=== PATIENT | male | born 1955 | race Caucasian/White ===

== ENCOUNTER 2017-05-31 14:52 | Inpatient (IN) | payer MEDICARE, OTHER ==
[~2017-05-31] VITALS: Ht 182.9 cm; Wt 151.7 kg
[2017-05-31] MEDS ORDERED: PIPERACILLIN/TAZO IV Push 3.375 GM VIAL. IVP ONE (16:00)
[2017-05-31] MEDS ORDERED: PIP/TAZO PER PHARMACY MC PRN (16:00)
[2017-05-31] MEDS ORDERED: ACETAMINOPHEN 500 MG TABLET PO ONE (16:45)
[2017-05-31] MEDS ORDERED: oxyCODONE/APAP 10/325 1 TAB TABLET PO ONE (16:45)
[2017-05-31 16:51] LABS: BASO % 0 % (0-3); EOS % 2 % (0-3); HEMATOCRIT 33.1 % (39.0-53.0); HEMOGLOBIN 10.3 g/dL (13.0-17.5); LYMPH # 0.5 x10^3/uL (1.0-4.8); LYMPH % 6 % (24-48); MEAN CORPUSCULAR HEMOGLOBIN 27 pg (25-35); MEAN CORPUSCULAR HGB CONC 31 g/dL (31-37); MEAN CORPUSCULAR VOLUME 86 fL (79-100); MONO % 7 % (0-9); NEUT % 85 % (31-73); PLATELET COUNT 249 x10^3/uL (140-400); RED BLOOD COUNT 3.86 x10^6/uL (4.30-5.70); RED CELL DISTRIBUTION WIDTH 16.6 % (11.5-14.5); WHITE BLOOD COUNT 8.9 x10^3/uL (4.0-11.0)
[2017-05-31 16:58] LABS: CALCIUM 8.8 mg/dL (8.5-10.1); CREATININE 1.6 mg/dL (0.7-1.3); POTASSIUM 5.6 mmol/L (3.5-5.1)
[2017-05-31 17:00] LABS: INR 1.1 (0.8-1.1); PROTHROMBIN TIME PATIENT 13.5 SEC (11.7-14.0)
[2017-05-31 17:04] LABS: ALBUMIN 3.5 g/dL (3.4-5.0); ALBUMIN/GLOBULIN RATIO 0.8 (1.0-1.7); TOTAL BILIRUBIN 0.2 mg/dL (0.2-1.0); TOTAL PROTEIN 7.7 g/dL (6.4-8.2)
--- NOTE | 2017-05-31 17:22 | PHYS DOC ---
Past Medical History Past Medical History: Arthritis, Bipolar, GERD, High Cholesterol, Hypertension Additional Past Medical Histor: BPH, thyroid disease, gout, lumbar stenosis Past Surgical History: Other Additional Past Surgical Histo: bilat knee surgery, cataracts, R wrist surgery Alcohol Use: Rarely Drug Use: None Adult General Chief Complaint Chief Complaint: FACE PROBLEM HPI HPI Patient is a 61 year old male who presents ambulatory to the ED with the complaint of right ear pain and swelling since yesterday. 2 days ago his right ear was painful, yesterday it got worse and became swollen, today it is even more swollen and painful. He has had fever and chills for 1 day. No vomiting. He 's never had this before. He is not diabetic. He doesn't know what might have started this, he did not have any kind of scratch or injury to his ear. Patient denies illness prior to [address] Gunderson Review of Systems Review of Systems Constitutional: Positive fever and chills for 1 day Eyes: Denies change in visual acuity, redness, or eye pain [] HENT: Denies nasal congestion or sore throat [] Respiratory: Denies cough or shortness of breath [] Cardiovascular: Denies chest pain GI: Denies abdominal pain, nausea, vomiting, bloody stools or diarrhea [] : Denies dysuria or hematuria [] Musculoskeletal: Denies back pain or joint pain [] Integument: As in history of present illness Neurologic: Denies headache, focal weakness or sensory changes [] Endocrine: Denies diabetes All other systems were reviewed and found to be within normal limits, except as documented in this note. Current Medications Current Medications Current Medications Medications (Trade) Dose Ordered Sig/Genesis Start Time Stop Time Status Last Admin Dose Admin Acetaminophen (Tylenol) 325 mg 1X ONCE 05/31/17 16:45 05/31/17 16:46 DC 05/31/17 16:48 325 MG Oxycodone/ Acetaminophen (Percocet 10/325) 2 tab 1X ONCE 05/31/17 16:45 05/31/17 16:46 DC 05/31/17 16:48 2 TAB Piperacillin Sod/ Tazobactam Sod (Zosyn Per Pharmacy) 1 each PRN DAILY PRN 05/31/17 16:00 Piperacillin Sod/ Tazobactam Sod (Zosyn) 3.375 gm 1X ONCE 05/31/17 16:00 05/31/17 16:01 DC 05/31/17 16:48 3.375 GM Allergies Allergies Allergies Coded Allergies Type Severity Reaction Last Updated Verified escitalopram Allergy Severe "made me suicidal" 05/31/17 Yes Physical Exam Physical Exam Constitutional: Obese male, ambulatory, alert, no acute distress, warm and dry HENT: Normocephalic, atraumatic, oropharynx moist, no oral exudates, nose normal. Right external ear is markedly swollen, red, tender. No focus noted where this may have started. He does not appear to have external otitis, it is the entire auricle. Left ear unremarkable. Erythema extends anteriorly on his face to about group home across his cheek and extends a little posterior to his ear , also extends inferior to about the angle of the mandible. Eyes: conjunctiva normal, no discharge. [] Neck: Normal range of motion, no tenderness, supple, no stridor. [] Cardiovascular:Heart rate regular rhythm, no murmur [] Lungs & Thorax: Bilateral breath sounds clear to auscultation [] Skin: Warm, dry, no erythema, no rash. [] Extremities: No tenderness, no cyanosis, no clubbing, ROM intact, no edema. [] Neurologic: Alert and oriented X 3, normal motor function, no focal deficits noted. [] Current Patient Data Vital Signs Vital Signs Date Time Temp Pulse Resp B/P (MAP) Pulse Ox O2 Delivery O2 Flow Rate FiO2 05/31/17 16:54 92 18 159/71 (100) 95 Room Air 05/31/17 16:45 100.3 100.3 Lab Values Laboratory Tests Test 05/31/17 16:39 White Blood Count 8.9 x10^3/uL (4.0-11.0) Red Blood Count 3.86 x10^6/uL (4.30-5.70) L Hemoglobin 10.3 g/dL (13.0-17.5) L Hematocrit 33.1 % (39.0-53.0) L Mean Corpuscular Volume 86 fL (79-100) Mean Corpuscular Hemoglobin 27 pg (25-35) Mean Corpuscular Hemoglobin Concent 31 g/dL (31-37) Red Cell Distribution Width 16.6 % (11.5-14.5) H Platelet Count 249 x10^3/uL (140-400) Neutrophils (%) (Auto) 85 % (31-73) H Lymphocytes (%) (Auto) 6 % (24-48) L Monocytes (%) (Auto) 7 % (0-9) Eosinophils (%) (Auto) 2 % (0-3) Basophils (%) (Auto) 0 % (0-3) Neutrophils # (Auto) 7.5 x10^3uL (1.8-7.7) Lymphocytes # (Auto) 0.5 x10^3/uL (1.0-4.8) L Monocytes # (Auto) 0.6 x10^3/uL (0.0-1.1) Eosinophils # (Auto) 0.2 x10^3/uL (0.0-0.7) Basophils # (Auto) 0.0 x10^3/uL (0.0-0.2) Prothrombin Time 13.5 SEC (11.7-14.0) Prothrombin Time INR 1.1 (0.8-1.1) PTT 31 SEC (24-38) Sodium Level 140 mmol/L (136-145) Potassium Level 5.6 mmol/L (3.5-5.1) H Chloride Level 104 mmol/L (98-107) Carbon Dioxide Level 25 mmol/L (21-32) Anion Gap 11 (6-14) Blood Urea Nitrogen 32 mg/dL (8-26) H Creatinine 1.6 mg/dL (0.7-1.3) H Estimated GFR (Cockcroft-Gault) 44.0 BUN/Creatinine Ratio 20 (6-20) Glucose Level 103 mg/dL (70-99) H Lactic Acid Level 1.7 mmol/L (0.4-2.0) Calcium Level 8.8 mg/dL (8.5-10.1) Total Bilirubin 0.2 mg/dL (0.2-1.0) Aspartate Amino Transferase (AST) 35 U/L (15-37) Alanine Aminotransferase (ALT) 40 U/L (16-63) Alkaline Phosphatase 82 U/L (46-116) Total Protein 7.7 g/dL (6.4-8.2) Albumin 3.5 g/dL (3.4-5.0) Albumin/Globulin Ratio 0.8 (1.0-1.7) L Laboratory Tests 11/12/17 16:39 Laboratory Tests 05/31/17 16:39 EKG EKG [] Radiology/Procedures Radiology/Procedures [] Course & Med Decision Making Course & Med Decision Making Pertinent Labs and Imaging studies reviewed. (See chart for details) 61-year-old male, who does not have diabetes, appears to have acute cellulitis of the right external ear that extends anteriorly onto the face, posteriorly, and inferiorly. He has had fever and chills at home with a temp of 100.8 here in the ED. I believe he should be supplies for IV antibiotics due to the severity of the cellulitis. Patient is agreeable to that plan. I discussed the case with who will admit the patient. I wrote bridge orders. I started the patient on antibiotics. [] Dragon Disclaimer Dragon Disclaimer This electronic medical record was generated, in whole or in part, using a voice recognition dictation system. Departure Departure Impression: Primary Impression: Cellulitis of right ear Additional Impression: Facial cellulitis Disposition: ADMITTED INPATIENT Admitting Physician: Anita Gunderson Condition: STABLE Referrals: ANITA GUNDERSON MD (PCP) Problem Qualifiers ROCIO LYONS MD May 31, 2017 17:22
[2017-05-31] MEDS ORDERED: IV NORMAL SALINE 1000ML BAG 1,000 ML IV ONE (17:30)
[2017-05-31] MEDS ORDERED: VANCOMYCIN 2 GM in IV DEXTROSE 5% 500 ML IV ONE (18:00)
[2017-05-31] MEDS ORDERED: SODIUM POLYSTYRENE SULFONATE 15 GM/60 ML ORAL.SUSP. PO ONE (19:15)
[2017-05-31 19:30] VITALS: BP 141/81
[2017-05-31] MEDS: VANCOMYCIN PER PHARMACY MC PRN ×2 (19:36→19:39)
[2017-05-31] MEDS ORDERED: ACETAMINOPHEN 500 MG TABLET PO PRN (22:30)
[2017-05-31 23:00] VITALS: BP 127/59
[2017-06-01] MEDS: PIPERACILLIN/TAZO IV Push 3.375 GM VIAL. IVP SCH ×4 (01:08→18:43)
[2017-06-01 02:55] VITALS: BP 137/88
[2017-06-01] MEDS ORDERED: VANCOMYCIN 1.5 GM in IV DEXTROSE 5% 500 ML IV SCH (06:30)
[2017-06-01 07:00] VITALS: BP 160/82
--- NOTE | 2017-06-01 08:29 | PDOC ---
GENERAL General: vss and tmax of 102.8 during night. chest clear and heart regular and abdomen benign. bilateral knee deformity at baseline and had appt with ortho today regarding same and will ask them to see while here. will ask ID opinion also with possibility of pseudomonas as organism and not sure have best coverage there. right ear quite swollen with cellulitis spreading anterior and posterior to ear and no decrease in painful nature of same to date. Problems: VITAL SIGNS Vital Signs: Vital Signs Date Time Temp Pulse Resp B/P (MAP) Pulse Ox O2 Delivery O2 Flow Rate FiO2 06/01/17 07:00 98.6 84 20 160/82 (108) 97 Room Air 98.6 ALLERGIES Allergies: Allergies Coded Allergies Type Severity Reaction Last Updated Verified escitalopram Allergy Severe "made me suicidal" 05/31/17 Yes MEDS Medications: Current Medications Medications (Trade) Dose Ordered Sig/Genesis Start Time Stop Time Status Last Admin Dose Admin Acetaminophen (Tylenol) 1,000 mg PRN Q6HRS PRN 05/31/17 22:30 05/31/17 22:44 1,000 MG Oxycodone/ Acetaminophen (Percocet 10/325) 2 tab 1X ONCE 05/31/17 16:45 05/31/17 16:46 DC 05/31/17 16:48 2 TAB Piperacillin Sod/ Tazobactam Sod (Zosyn Per Pharmacy) 1 each PRN DAILY PRN 05/31/17 16:00 Piperacillin Sod/ Tazobactam Sod (Zosyn) 3.375 gm Q6HRS 06/01/17 00:00 06/01/17 06:36 3.375 GM Sodium Polystyrene Sulfonate (Kayexalate) 15 gm 1X ONCE 05/31/17 19:15 05/31/17 19:16 DC 05/31/17 22:44 15 GM Sodium Chloride 1,000 ml @ 100 mls/hr 1X ONCE 05/31/17 17:30 06/01/17 03:29 DC 05/31/17 18:23 100 MLS/HR Vancomycin HCl 1 each 1X ONCE 06/02/17 06:00 06/02/17 06:01 Vancomycin HCl (Vanco Per Pharmacy) 1 each PRN DAILY PRN 05/31/17 17:30 05/31/17 19:39 1 EACH Vancomycin HCl 1.5 gm/Dextrose 500 ml @ 250 mls/hr Q12H 11/13/17 06:30 06/01/17 06:36 250 MLS/HR Vancomycin HCl 2 gm/Dextrose 500 ml @ 250 mls/hr 1X ONCE 05/31/17 18:00 05/31/17 19:59 DC 05/31/17 18:23 250 MLS/HR LAB Lab: Laboratory Tests Test 05/31/17 16:39 White Blood Count 8.9 x10^3/uL (4.0-11.0) Red Blood Count 3.86 x10^6/uL (4.30-5.70) Hemoglobin 10.3 g/dL (13.0-17.5) Hematocrit 33.1 % (39.0-53.0) Mean Corpuscular Volume 86 fL (79-100) Mean Corpuscular Hemoglobin 27 pg (25-35) Mean Corpuscular Hemoglobin Concent 31 g/dL (31-37) Red Cell Distribution Width 16.6 % (11.5-14.5) Platelet Count 249 x10^3/uL (140-400) Neutrophils (%) (Auto) 85 % (31-73) Lymphocytes (%) (Auto) 6 % (24-48) Monocytes (%) (Auto) 7 % (0-9) Eosinophils (%) (Auto) 2 % (0-3) Basophils (%) (Auto) 0 % (0-3) Neutrophils # (Auto) 7.5 x10^3uL (1.8-7.7) Lymphocytes # (Auto) 0.5 x10^3/uL (1.0-4.8) Monocytes # (Auto) 0.6 x10^3/uL (0.0-1.1) Eosinophils # (Auto) 0.2 x10^3/uL (0.0-0.7) Basophils # (Auto) 0.0 x10^3/uL (0.0-0.2) Prothrombin Time 13.5 SEC (11.7-14.0) Prothromb Time International Ratio 1.1 (0.8-1.1) Activated Partial Thromboplast Time 31 SEC (24-38) Sodium Level 140 mmol/L (136-145) Potassium Level 5.6 mmol/L (3.5-5.1) Chloride Level 104 mmol/L (98-107) Carbon Dioxide Level 25 mmol/L (21-32) Anion Gap 11 (6-14) Blood Urea Nitrogen 32 mg/dL (8-26) Creatinine 1.6 mg/dL (0.7-1.3) Estimated GFR (Cockcroft-Gault) 44.0 BUN/Creatinine Ratio 20 (6-20) Glucose Level 103 mg/dL (70-99) Lactic Acid Level 1.7 mmol/L (0.4-2.0) Calcium Level 8.8 mg/dL (8.5-10.1) Total Bilirubin 0.2 mg/dL (0.2-1.0) Aspartate Amino Transf (AST/SGOT) 35 U/L (15-37) Alanine Aminotransferase (ALT/SGPT) 40 U/L (16-63) Alkaline Phosphatase 82 U/L (46-116) Total Protein 7.7 g/dL (6.4-8.2) Albumin 3.5 g/dL (3.4-5.0) Albumin/Globulin Ratio 0.8 (1.0-1.7) ANITA GUNDERSON MD Jun 01, 2017 08:29
--- NOTE | 2017-06-01 09:24 | HP ---
ADMIT DATE: CHIEF COMPLAINT AND HISTORY OF PRESENT ILLNESS: This is a 61-year-old white male who is well known to me from followup in the office. The patient had some ear pain starting Thursday night, progressively worse on Thursday and then Thursday, with fevers and chills and sweats. He presented to the Emergency Room, where he was found to have cellulitis of the right ear extending anterior and posterior to the ear. He did have a normal white count in the 8000 range, with a left shift and because of the nature of the cellulitis being facial, he was admitted for IV antibiotics and blood cultures. PAST MEDICAL HISTORY: Remarkable for osteoarthritis, bipolar depression, GERD, hyperlipidemia, hypertension, BPH, thyroid disease, lumbar spinal stenosis and gout. PAST SURGICAL HISTORY: Remarkable for bilateral laparoscope surgeries, cataracts and right wrist surgery. MEDICATIONS: Meds were brought with the patient and listed on the computer and have been addressed. ALLERGIES: HE IS ALLERGIC TO LEXAPRO. SOCIAL HISTORY: The patient is a nonsmoker, rarely drinks. Does not use drugs. He is and lives at home with his . FAMILY HISTORY: Noncontributory. REVIEW OF SYSTEMS: As is mentioned above. PHYSICAL EXAMINATION: GENERAL: He is a well-developed and well-nourished, pleasant white male in mild amount of distress. VITAL SIGNS: Stable. He just had a temperature slightly high at 102.8 since admission. HEAD, EYES, EARS, NOSE AND THROAT: Remarkable for marked swelling of the right pinna. He does have cellulitis extending approximately a third of the way from the pinna upwards to the nares as well as posteriorly a similar amount of area and submandibular. NECK: Supple without bruit or thyromegaly. CHEST: Clear to auscultation and percussion. HEART: Regular rate and rhythm, without S3, S4 or murmur. ABDOMEN: Soft, nontender, without hepatosplenomegaly or masses. EXTREMITIES: Reveal osteoarthritic deformities of both knees and interestingly, he was to see Ortho today in the office to consider knee replacements, which we have been talking about for years. NEUROLOGIC: He is intact. IMPRESSION: Right ear and facial cellulitis, as discussed above, and acute multiple other problems listed above. PLAN: The patient has been admitted. He also has a normochromic, normocytic anemia and a creatinine of 1.6 on admission. I am going to ask ID to see him about the possibility of a Pseudomonal component to this, whether it is starting in the ear, for direction on antibiotic therapy, as he is currently on vancomycin and Zosyn. We will also ask Ortho to see him while he is here, since he is going to be obviously missing his appointment today and may be that will save him from re-do that. ANITA GUNDERSON MD DR: IVONNE/jaye JOB#: [id number] / [id number]
[2017-06-01] MEDS ORDERED: TERA5CAP3 PO (10:08)
[2017-06-01] MEDS ORDERED: LEVO100T5 PO (10:09)
[2017-06-01] MEDS ORDERED: DICL75TA PO (10:10)
[2017-06-01] MEDS ORDERED: ZIPR80CA3 PO (10:11)
[2017-06-01] MEDS ORDERED: ATOM40CA PO (10:12)
[2017-06-01] MEDS ORDERED: ALLO300T PO (10:12)
[2017-06-01] MEDS ORDERED: FINA5TAB4 PO (10:13)
[2017-06-01] MEDS ORDERED: BYSTOLIC5 MG PO (10:13)
[2017-06-01] MEDS ORDERED: PRAV40TA2 PO (10:17)
[2017-06-01 10:37] LABS: % SAT IRON 2 % (15-34); IRON,SERUM 7 ug/dL (65-175)
[2017-06-01 10:45] LABS: FOLATE 19.81 ng/ml (3.2-20.0)
[2017-06-01 11:00] VITALS: BP 141/82
[2017-06-01] MEDS ORDERED: OXYC1TAB9 PO (11:17)
[2017-06-01] MEDS ORDERED: TRAZ100T12 PO (11:18)
[2017-06-01] MEDS ORDERED: CLON0.5T3 PO (11:18)
[2017-06-01] MEDS ORDERED: CYCL10TA2 PO (11:19)
[2017-06-01] MEDS ORDERED: ASPI-482 PO (11:20)
[2017-06-01] MEDS ORDERED: MONT10TA9 PO (11:20)
[2017-06-01] MEDS ORDERED: OMEP20TA63 PO (11:22)
[2017-06-01] MEDS ORDERED: GLUC1CAP18 PO (11:22)
--- NOTE | 2017-06-01 11:22 | PDOC ---
Infectious Disease Note ROS ROS Vital Sign Vital Signs Vital Signs Date Time Temp Pulse Resp B/P (MAP) Pulse Ox O2 Delivery O2 Flow Rate FiO2 06/01/17 07:00 98.6 84 20 160/82 (108) 97 Room Air 98.6 Labs Lab Laboratory Tests Test 05/31/17 16:39 06/01/17 09:40 White Blood Count 8.9 x10^3/uL (4.0-11.0) Red Blood Count 3.86 x10^6/uL (4.30-5.70) Hemoglobin 10.3 g/dL (13.0-17.5) Hematocrit 33.1 % (39.0-53.0) Mean Corpuscular Volume 86 fL (79-100) Mean Corpuscular Hemoglobin 27 pg (25-35) Mean Corpuscular Hemoglobin Concent 31 g/dL (31-37) Red Cell Distribution Width 16.6 % (11.5-14.5) Platelet Count 249 x10^3/uL (140-400) Neutrophils (%) (Auto) 85 % (31-73) Lymphocytes (%) (Auto) 6 % (24-48) Monocytes (%) (Auto) 7 % (0-9) Eosinophils (%) (Auto) 2 % (0-3) Basophils (%) (Auto) 0 % (0-3) Neutrophils # (Auto) 7.5 x10^3uL (1.8-7.7) Lymphocytes # (Auto) 0.5 x10^3/uL (1.0-4.8) Monocytes # (Auto) 0.6 x10^3/uL (0.0-1.1) Eosinophils # (Auto) 0.2 x10^3/uL (0.0-0.7) Basophils # (Auto) 0.0 x10^3/uL (0.0-0.2) Prothrombin Time 13.5 SEC (11.7-14.0) Prothromb Time International Ratio 1.1 (0.8-1.1) Activated Partial Thromboplast Time 31 SEC (24-38) Sodium Level 140 mmol/L (136-145) Potassium Level 5.6 mmol/L (3.5-5.1) Chloride Level 104 mmol/L (98-107) Carbon Dioxide Level 25 mmol/L (21-32) Anion Gap 11 (6-14) Blood Urea Nitrogen 32 mg/dL (8-26) Creatinine 1.6 mg/dL (0.7-1.3) Estimated GFR (Cockcroft-Gault) 44.0 BUN/Creatinine Ratio 20 (6-20) Glucose Level 103 mg/dL (70-99) Lactic Acid Level 1.7 mmol/L (0.4-2.0) Calcium Level 8.8 mg/dL (8.5-10.1) Total Bilirubin 0.2 mg/dL (0.2-1.0) Aspartate Amino Transf (AST/SGOT) 35 U/L (15-37) Alanine Aminotransferase (ALT/SGPT) 40 U/L (16-63) Alkaline Phosphatase 82 U/L (46-116) Total Protein 7.7 g/dL (6.4-8.2) Albumin 3.5 g/dL (3.4-5.0) Albumin/Globulin Ratio 0.8 (1.0-1.7) Iron Level 7 ug/dL (65-175) Total Iron Binding Capacity 289 ug/dL (250-450) Iron Saturation 2 % (15-34) Vitamin B12 Level 528 pg/mL (247-911) Serum Folate 19.81 ng/ml (3.2-20.0) Objective Assessment Fever Right ear cellulitis Water exposure TACHO Plan Plan of Care Change Vanc to Zyvox Cont Zosyn with water exposure F/u labs and cults Thank you # [id number] BLANCA GUZMAN MD Jun 01, 2017 11:22
[2017-06-01] MEDS ORDERED: FISH1CAP PO (11:23)
[2017-06-01] MEDS ORDERED: GARL10002 PO (11:23)
[2017-06-01] MEDS ORDERED: CYAN10005 PO (11:24)
[2017-06-01] MEDS ORDERED: MULT1TAB52 PO (11:24)
[2017-06-01] MEDS ORDERED: CYCLOBENZAPRINE 10 MG TABLET. PO PRN (11:45)
[2017-06-01] MEDS: ZIPRASIDONE 20 MG CAPSULE PO SCH ×2 (12:32→21:06)
[2017-06-01] MEDS: LINEZOLID 600 MG TABLET PO SCH ×2 (12:33→21:07)
[2017-06-01] MEDS: METOPROLOL TART IMMED RELEASE 25 MG TABLET. PO SCH ×2 (12:33→21:09)
[2017-06-01] MEDS: clonazePAM 0.5 MG TABLET PO SCH (12:33)
[2017-06-01] MEDS: PANTOPRAZOLE 40 MG TABLET.DR. PO SCH (12:33)
[2017-06-01] MEDS: CYANOCOBALAMIN (VITAMIN B-12) 1,000 MCG TABLET. PO SCH (12:33)
[2017-06-01] MEDS: OMEGA-3 FATTY ACIDS/FISH OIL 1,000 MG CAPSULE. PO SCH (12:34)
[2017-06-01] MEDS: MULTIVITAMIN with MINERAL TABLET. PO SCH (12:34)
[2017-06-01] MEDS: FINASTERIDE 5 MG TABLET. PO SCH (12:34)
[2017-06-01] MEDS: ALLOPURINOL 300 MG TABLET. PO SCH (12:34)
[2017-06-01] MEDS: MONTELUKAST SODIUM 10 MG TABLET. PO SCH (12:34)
[2017-06-01] MEDS: oxyCODONE/APAP 10/325 1 TAB TABLET PO PRN ×2 (12:34→21:06)
[2017-06-01] MEDS: DICLOFENAC SODIUM 25 MG TABLET.DR PO SCH (12:35)
[2017-06-01] MEDS: ASPIRIN ENTERIC COATED 81 MG TABLET.DR. PO SCH (12:35)
--- NOTE | 2017-06-01 13:26 | CONS ---
DATE OF CONSULTATION: 06/01/2017 LOCATION: Room 582. REQUESTING PHYSICIAN: Dr. Sarmiento. REASON FOR CONSULTATION: Cellulitis. HISTORY OF PRESENT ILLNESS: The patient is a pleasant 61-year-old gentleman who last Thursday in the late afternoon noticed pain in his right ear. Denies any trauma or bites. Over the weekend, it continued to worsen. He states it affected his hearing, although this has improved. He has not had any drainage, no sinus issues, no sore throat, but began to have a little bit of swelling on the right side of his neck as well. There are no family members with any similar situations. He has not had any previous strep or staph history and no exposure that he knows of. He presented to [facility] Emergency Room, had a white count of 8000, but last evening developed a temperature of 102.8. He has been placed on Zosyn and vancomycin. Currently, he is sitting upright in a chair. He states he is feeling somewhat better. He has no change in vision. No cough or shortness of air. No nausea, vomiting, diarrhea. No dysuria, frequency, urgency. He has chronic joint pains with the knees and back. Additionally, he swims usually Thursday, Thursday and Thursday, but his last time was last Thursday. PAST MEDICAL HISTORY: Positive for osteoarthritis, bipolar, depression, gastroesophageal reflux disease, hyperlipidemia, hypertension, benign prostatic hypertrophy, thyroid disease, lumbar spinal stenosis and history of gout. PAST SURGICAL HISTORY: Positive for bilateral laparoscopic surgeries, cataracts and right wrist surgery. REVIEW OF SYSTEMS: Otherwise negative except for mentioned above. ALLERGIES: LEXAPRO. SOCIAL HISTORY: He is . No tobacco. FAMILY HISTORY: Noncontributory. No ill contacts. CURRENT MEDICATIONS: Include vancomycin, Zosyn, Percocet. Other meds are available and have been reviewed in the chart. PHYSICAL EXAMINATION: VITAL SIGNS: T-max 102.8, currently 98.6, pulse 84, respirations 20, blood pressure 160/82, satting 97% on room air. CONSTITUTIONAL: He is very pleasant, cooperative, in no acute distress, sitting in chair. HEENT: Pupils are status post cataract surgery. He has some cauliflower deformity of his ears and his right ear does have mild erythema with the pinna and on the lateral aspect of his neck. There are no rashes, no blisters, and no tracking to the midline. He has no drainage from the ear canal, minimal wax and tenderness is minimal, warmth is positive. Oral cavity, pharynx is clear. NECK: Supple. Good range of motion, no JVD. LUNGS: Clear to auscultation. HEART: S1, S2. ABDOMEN: Soft, nontender, nondistended, positive bowel sounds. EXTREMITIES: Without clubbing or cyanosis. No gross edema. SKIN: Warm to touch without signs of rash. He has got a small little scab there to his left chest, it appears clean, does not look infected. Also has a tattoo there. NEUROLOGIC: He is nonfocal. PSYCHIATRIC: Affect is pleasant. LABORATORY DATA: White count 8.9, hemoglobin 10.3, platelets of 249 with 85 segs. Creatinine was 1.6. Normal liver function study test. Glucose was 103. Cultures are pending. There are no radiological studies. IMPRESSION: 1. Fever. 2. Right ear cellulitis. 3. Water exposure, [facility]. 4. Acute kidney injury. RECOMMENDATIONS: At this time, we will change the vancomycin to Zyvox given his acute kidney injury. Also, continue the Zosyn, with water exposure there has to be concern about potential pseudomonas. He does not have any exposure to hot tubs or saunas. We will follow up labs and cultures. Thank you for allowing me to participate in the patient's care. If you have any questions, please do not hesitate to contact me. BLANCA GUZMAN MD DR: RUSS/jaye JOB#: [id number] / [id number]
[2017-06-01] MEDS: LEVOTHYROXINE 100 MCG TABLET PO SCH (14:30)
[2017-06-01 15:04] VITALS: BP 138/74
--- NOTE | 2017-06-01 16:18 | RAD ---
Bilateral knees, 6 views, 06/01/2017: History: Pain AP standing views of both knees as well as lateral and tangential patellar views were obtained as requested. There is considerable narrowing of the medial compartments of both knee joints with mild marginal spurring. There is moderate spurring at both patellofemoral articulations. No acute fracture or dislocation is identified. Several small prepatellar calcifications are noted on the left. No large joint effusion is seen. IMPRESSION: 1. Moderately severe degenerative change with dominant involvement of the medial compartments of both knee joints. 2. No acute bony abnormality is detected.
[2017-06-01 19:00] VITALS: BP 138/85
[2017-06-01] MEDS ORDERED: NON FORMULARY ITEM (Gluc Hcl/Csa/Coll Hy/Hyalur Ac (Glucosamine Chondroitin Cap) 1 EACH) PO SCH (21:00)
[2017-06-01] MEDS: traZODone 100 MG TABLET. PO SCH (21:07)
[2017-06-01] MEDS: ATORVASTATIN CALCIUM 10 MG TABLET. PO SCH (21:08)
[2017-06-01] MEDS: TERAZOSIN 5 MG CAPSULE. PO SCH (21:08)
[2017-06-01 23:00] VITALS: BP 137/73
[2017-06-02] MEDS: PIPERACILLIN/TAZO IV Push 3.375 GM VIAL. IVP SCH ×4 (00:23→18:00)
[2017-06-02 03:50] VITALS: BP 156/81
[2017-06-02] MEDS: oxyCODONE/APAP 10/325 1 TAB TABLET PO PRN ×3 (06:20→20:59)
[2017-06-02] MEDS: LEVOTHYROXINE 100 MCG TABLET PO SCH (06:21)
[2017-06-02 06:24] LABS: BASO % 0 % (0-3); EOS % 4 % (0-3); HEMATOCRIT 28.2 % (39.0-53.0); HEMOGLOBIN 8.9 g/dL (13.0-17.5); LYMPH # 0.7 x10^3/uL (1.0-4.8); LYMPH % 10 % (24-48); MEAN CORPUSCULAR HEMOGLOBIN 27 pg (25-35); MEAN CORPUSCULAR HGB CONC 32 g/dL (31-37); MEAN CORPUSCULAR VOLUME 84 fL (79-100); MONO % 9 % (0-9); NEUT % 77 % (31-73); PLATELET COUNT 220 x10^3/uL (140-400); RED BLOOD COUNT 3.35 x10^6/uL (4.30-5.70); RED CELL DISTRIBUTION WIDTH 16.5 % (11.5-14.5); WHITE BLOOD COUNT 7.3 x10^3/uL (4.0-11.0)
[2017-06-02 06:52] LABS: ALBUMIN 2.8 g/dL (3.4-5.0); ALBUMIN/GLOBULIN RATIO 0.7 (1.0-1.7); CALCIUM 8.9 mg/dL (8.5-10.1); CREATININE 1.2 mg/dL (0.7-1.3); GFR 61.3; POTASSIUM 4.5 mmol/L (3.5-5.1); TOTAL BILIRUBIN 0.3 mg/dL (0.2-1.0); TOTAL PROTEIN 6.7 g/dL (6.4-8.2)
[2017-06-02 07:00] VITALS: BP 153/88
[2017-06-02] MEDS ORDERED: NON FORMULARY ITEM (Atomoxetine Hcl (Strattera) 1 CAP) PO SCH (08:00)
--- NOTE | 2017-06-02 08:42 | PDOC ---
GENERAL General: vss and afebrile. awake and alert and eating breakfast. cellulitis has extended little further on face from yesterday but doesn't feel as hot and no further fevers in the last 24 hours. x-rays of knees with moderately severe OA as expected. has had a year or so of drainage from umbilicus that is kept in check with bactroban but has never went away and would be curious as to ID thoughts on same. TACHO has resolved with creatinine down to 1.2 this am. adjust pain meds back to home schedule. wbc decreased to 7.3 and left shift improved. Problems: VITAL SIGNS Vital Signs: Vital Signs Date Time Temp Pulse Resp B/P (MAP) Pulse Ox O2 Delivery O2 Flow Rate FiO2 06/02/17 07:00 97.9 79 20 153/88 (109) 96 Room Air 97.9 I & O I & O Intake and Output 06/02/17 06:59 Intake Total 2000 ml Balance 2000 ml Intake Oral 2000 ml # Voids 5 # Bowel Movements 1 ALLERGIES Allergies: Allergies Coded Allergies Type Severity Reaction Last Updated Verified escitalopram Allergy Severe "made me suicidal" 05/31/17 Yes MEDS Medications: Current Medications Medications (Trade) Dose Ordered Sig/Genesis Start Time Stop Time Status Last Admin Dose Admin Acetaminophen (Tylenol) 1,000 mg PRN Q6HRS PRN 05/31/17 22:30 05/31/17 22:44 1,000 MG Allopurinol (Zyloprim) 300 mg DAILY 06/01/17 12:30 06/01/17 12:34 300 MG Aspirin (Ecotrin) 81 mg DAILY 06/01/17 12:30 06/01/17 12:35 81 MG Atorvastatin Calcium (Lipitor) 10 mg QHS 06/01/17 21:00 06/01/17 21:08 10 MG Clonazepam (KlonoPIN) 0.5 mg DAILY 06/01/17 12:30 06/01/17 12:33 0.5 MG Cyanocobalamin (Vitamin B-12) 1,000 mcg DAILY 06/01/17 12:30 06/01/17 12:33 1,000 MCG Cyclobenzaprine HCl (Flexeril) 10 mg PRN TID PRN 06/01/17 11:45 Diclofenac Sodium (Voltaren) 75 mg DAILY 06/01/17 12:30 06/01/17 12:35 75 MG Finasteride (Proscar) 5 mg DAILY 06/01/17 12:30 06/01/17 12:34 5 MG Fish Oil (Fish Oil) 1,000 mg DAILY 06/01/17 12:30 06/01/17 12:34 1,000 MG Levothyroxine Sodium (Synthroid) 100 mcg DAILY07 06/01/17 12:30 06/02/17 06:21 100 MCG Linezolid (Zyvox) 600 mg BID 06/01/17 12:00 06/01/17 21:07 600 MG Metoprolol Tartrate (Lopressor) 25 mg BID 06/01/17 12:30 06/01/17 21:09 25 MG Montelukast Sodium (Singulair) 10 mg DAILY 06/01/17 12:30 06/01/17 12:34 10 MG Multivitamins (Thera M Plus) 1 tab DAILY 06/01/17 12:30 06/01/17 12:34 1 TAB Non-Formulary Medication 1 each BID 06/01/17 21:00 UNV Oxycodone/ Acetaminophen (Percocet 10/325) 2 tab TID PRN PRN 06/02/17 08:45 Pantoprazole Sodium (Protonix) 40 mg DAILYAC 06/01/17 12:30 06/01/17 12:33 40 MG Piperacillin Sod/ Tazobactam Sod (Zosyn Per Pharmacy) 1 each PRN DAILY PRN 05/31/17 16:00 Piperacillin Sod/ Tazobactam Sod (Zosyn) 3.375 gm Q6HRS 06/01/17 00:00 06/02/17 06:23 3.375 GM Sodium Polystyrene Sulfonate (Kayexalate) 15 gm 1X ONCE 05/31/17 19:15 05/31/17 19:16 DC 05/31/17 22:44 15 GM Sodium Chloride 1,000 ml @ 100 mls/hr 1X ONCE 05/31/17 17:30 06/01/17 03:29 DC 05/31/17 18:23 100 MLS/HR Terazosin HCl (Hytrin) 5 mg QHS 06/01/17 21:00 06/01/17 21:08 5 MG Trazodone HCl (Desyrel) 100 mg QHS 06/01/17 21:00 06/01/17 21:07 100 MG Vancomycin HCl 1 each 1X ONCE 06/02/17 06:00 06/02/17 06:00 DC Vancomycin HCl (Vanco Per Pharmacy) 1 each PRN DAILY PRN 05/31/17 17:30 06/01/17 11:15 DC 05/31/17 19:39 1 EACH Vancomycin HCl 1.5 gm/Dextrose 500 ml @ 250 mls/hr Q12H 06/01/17 06:30 06/01/17 11:15 DC 06/01/17 06:36 250 MLS/HR Vancomycin HCl 2 gm/Dextrose 500 ml @ 250 mls/hr 1X ONCE 05/31/17 18:00 05/31/17 19:59 DC 05/31/17 18:23 250 MLS/HR Ziprasidone (Geodon) 80 mg BID 06/01/17 12:30 06/01/17 21:06 80 MG LAB Lab: Laboratory Tests Test 06/01/17 09:40 06/02/17 05:41 Iron Level 7 ug/dL (65-175) Total Iron Binding Capacity 289 ug/dL (250-450) Iron Saturation 2 % (15-34) Vitamin B12 Level 528 pg/mL (247-911) Serum Folate 19.81 ng/ml (3.2-20.0) White Blood Count 7.3 x10^3/uL (4.0-11.0) Red Blood Count 3.35 x10^6/uL (4.30-5.70) Hemoglobin 8.9 g/dL (13.0-17.5) Hematocrit 28.2 % (39.0-53.0) Mean Corpuscular Volume 84 fL (79-100) Mean Corpuscular Hemoglobin 27 pg (25-35) Mean Corpuscular Hemoglobin Concent 32 g/dL (31-37) Red Cell Distribution Width 16.5 % (11.5-14.5) Platelet Count 220 x10^3/uL (140-400) Neutrophils (%) (Auto) 77 % (31-73) Lymphocytes (%) (Auto) 10 % (24-48) Monocytes (%) (Auto) 9 % (0-9) Eosinophils (%) (Auto) 4 % (0-3) Basophils (%) (Auto) 0 % (0-3) Neutrophils # (Auto) 5.7 x10^3uL (1.8-7.7) Lymphocytes # (Auto) 0.7 x10^3/uL (1.0-4.8) Monocytes # (Auto) 0.7 x10^3/uL (0.0-1.1) Eosinophils # (Auto) 0.3 x10^3/uL (0.0-0.7) Basophils # (Auto) 0.0 x10^3/uL (0.0-0.2) Sodium Level 142 mmol/L (136-145) Potassium Level 4.5 mmol/L (3.5-5.1) Chloride Level 108 mmol/L (98-107) Carbon Dioxide Level 25 mmol/L (21-32) Anion Gap 9 (6-14) Blood Urea Nitrogen 20 mg/dL (8-26) Creatinine 1.2 mg/dL (0.7-1.3) Estimated GFR (Cockcroft-Gault) 61.3 BUN/Creatinine Ratio 17 (6-20) Glucose Level 106 mg/dL (70-99) Calcium Level 8.9 mg/dL (8.5-10.1) Total Bilirubin 0.3 mg/dL (0.2-1.0) Aspartate Amino Transf (AST/SGOT) 31 U/L (15-37) Alanine Aminotransferase (ALT/SGPT) 44 U/L (16-63) Alkaline Phosphatase 69 U/L (46-116) Total Protein 6.7 g/dL (6.4-8.2) Albumin 2.8 g/dL (3.4-5.0) Albumin/Globulin Ratio 0.7 (1.0-1.7) ANITA GUNDERSON MD Jun 02, 2017 08:42
[2017-06-02] MEDS: ALLOPURINOL 300 MG TABLET. PO SCH (08:51)
[2017-06-02] MEDS: PANTOPRAZOLE 40 MG TABLET.DR. PO SCH (08:51)
[2017-06-02] MEDS: DICLOFENAC SODIUM 25 MG TABLET.DR PO SCH (08:51)
[2017-06-02] MEDS: MONTELUKAST SODIUM 10 MG TABLET. PO SCH (08:51)
[2017-06-02] MEDS: LINEZOLID 600 MG TABLET PO SCH ×2 (08:52→20:54)
[2017-06-02] MEDS: ASPIRIN ENTERIC COATED 81 MG TABLET.DR. PO SCH (08:52)
[2017-06-02] MEDS: FINASTERIDE 5 MG TABLET. PO SCH (08:52)
[2017-06-02] MEDS: CYANOCOBALAMIN (VITAMIN B-12) 1,000 MCG TABLET. PO SCH (08:52)
[2017-06-02] MEDS: clonazePAM 0.5 MG TABLET PO SCH (08:53)
[2017-06-02] MEDS: OMEGA-3 FATTY ACIDS/FISH OIL 1,000 MG CAPSULE. PO SCH (08:53)
[2017-06-02] MEDS: ZIPRASIDONE 20 MG CAPSULE PO SCH ×2 (08:53→20:55)
[2017-06-02] MEDS: METOPROLOL TART IMMED RELEASE 25 MG TABLET. PO SCH ×2 (08:53→20:55)
[2017-06-02] MEDS: MULTIVITAMIN with MINERAL TABLET. PO SCH (08:58)
[2017-06-02] MEDS ORDERED: NON FORMULARY ITEM (Garlic 1,000 MG) PO SCH (09:00)
--- NOTE | 2017-06-02 10:10 | PDOC ---
Infectious Disease Note Subjective Subjective Less pain and fever. No ear drainage or chenge in hearing. vision/sinus ok C/o belly button drainage for over a year ROS ROS GEN: Denies fevers, chills, sweats HEENT: Denies blurred vision, sore throat CV: Denies chest pain RESP: Denies shortness of air, cough GI: Denies n/v/d NEURO: Denies confusion, dizziness MSK: Denies weakness, joint pain/swelling Vital Sign Vital Signs Vital Signs Date Time Temp Pulse Resp B/P (MAP) Pulse Ox O2 Delivery O2 Flow Rate FiO2 06/02/17 08:53 79 153/88 06/02/17 07:00 97.9 20 96 Room Air 97.9 Physical Exam PHYSICAL EXAM GENERAL: NAD, Alert HEENT: PERRL, OC/OP - clear NECK: Supple, no JVD, no LN LUNGS: Clear HEART: S1S2, no gallop, no murmur ABD: Soft, NT, no organomegaly, no rebound. Umbilical ulcerated area. No deep penetration and o/w clean EXT: No edema, no cyanosis [employer]: Alert, oriented x 3, no focal neurologic deficit SKIN: No rash. Less inflammation of ear and surrounding area IV: ok Labs Lab Laboratory Tests Test 06/02/17 05:41 White Blood Count 7.3 x10^3/uL (4.0-11.0) Red Blood Count 3.35 x10^6/uL (4.30-5.70) Hemoglobin 8.9 g/dL (13.0-17.5) Hematocrit 28.2 % (39.0-53.0) Mean Corpuscular Volume 84 fL (79-100) Mean Corpuscular Hemoglobin 27 pg (25-35) Mean Corpuscular Hemoglobin Concent 32 g/dL (31-37) Red Cell Distribution Width 16.5 % (11.5-14.5) Platelet Count 220 x10^3/uL (140-400) Neutrophils (%) (Auto) 77 % (31-73) Lymphocytes (%) (Auto) 10 % (24-48) Monocytes (%) (Auto) 9 % (0-9) Eosinophils (%) (Auto) 4 % (0-3) Basophils (%) (Auto) 0 % (0-3) Neutrophils # (Auto) 5.7 x10^3uL (1.8-7.7) Lymphocytes # (Auto) 0.7 x10^3/uL (1.0-4.8) Monocytes # (Auto) 0.7 x10^3/uL (0.0-1.1) Eosinophils # (Auto) 0.3 x10^3/uL (0.0-0.7) Basophils # (Auto) 0.0 x10^3/uL (0.0-0.2) Sodium Level 142 mmol/L (136-145) Potassium Level 4.5 mmol/L (3.5-5.1) Chloride Level 108 mmol/L (98-107) Carbon Dioxide Level 25 mmol/L (21-32) Anion Gap 9 (6-14) Blood Urea Nitrogen 20 mg/dL (8-26) Creatinine 1.2 mg/dL (0.7-1.3) Estimated GFR (Cockcroft-Gault) 61.3 BUN/Creatinine Ratio 17 (6-20) Glucose Level 106 mg/dL (70-99) Calcium Level 8.9 mg/dL (8.5-10.1) Total Bilirubin 0.3 mg/dL (0.2-1.0) Aspartate Amino Transf (AST/SGOT) 31 U/L (15-37) Alanine Aminotransferase (ALT/SGPT) 44 U/L (16-63) Alkaline Phosphatase 69 U/L (46-116) Total Protein 6.7 g/dL (6.4-8.2) Albumin 2.8 g/dL (3.4-5.0) Albumin/Globulin Ratio 0.7 (1.0-1.7) Objective Assessment Fever better Right ear cellulitis - improving Umbilical superficial ulcer Water exposure TACHO - better Plan Plan of Care Cont Zyvox Cont Zosyn with water exposure F/u labs and cults Wound care eval - needs alginate BLANCA GUZMAN MD Jun 02, 2017 10:10
[2017-06-02 11:00] VITALS: BP 111/75
--- NOTE | 2017-06-02 14:09 | PDOC2 ---
CONSULT Date of Consult Date of Consult DATE: 06/02/17 TIME: 14:00 Reason for Consult Reason for Consult: Bilateral knee pain Referring Physician Referring Physician: Torsten Identification/Chief Complaint Chief Complaint Bilateral knee pain Problems: Source Source: Patient History of Present Illness Reason for Visit: Saad is a very pleasant 61-year-old who is admitted for facial cellulitis and her cellulitis as well. He feels like these issues have been getting better since he has been inpatient and on IV antibiotics. I was asked to see him for his knee pain. He has had knee pain for years, it is worse with increasing activity and stairs. He feels the pain all around his knees. They do swell from time to time. He has tried cortisone which does not help and he has tried the series of shots which helped a little bit. He has been told in the past at his weight precludes any surgical intervention. He tells me he is trying to be good about losing weight but has a lot of difficulty. His knee pain doesn't really radiate. Past Medical History GI: GERD Psych: Bipolar Musculoskeletal: Osteoarthritis Endocrine: Hypothyroidism Past Surgical History Past Surgical History He has had knee arthroscopies and wrist surgery in the past Family History Family History: Other Social History No ALCOHOL: none Current Problem List Problem List Problems Medical Problems: (1) Cellulitis of right ear Status: Acute (2) Facial cellulitis Status: Acute Current Medications Current Medications Current Medications Piperacillin Sod/ Tazobactam Sod (Zosyn Per Pharmacy) 1 each PRN DAILY PRN MC SEE COMMENTS; Start 05/31/17 at 16:00 Piperacillin Sod/ Tazobactam Sod (Zosyn) 3.375 gm 1X ONCE IVP Last administered on 05/31/17 16:48; Start 05/31/17 at 16:00; Stop 05/31/17 at 16 :01; Status DC Oxycodone/ Acetaminophen (Percocet 10/325) 2 tab 1X ONCE PO Last administered on 05/31/17 16:48; Start 05/31/17 at 16:45; Stop 05/31/17 at 16:46; Status DC Acetaminophen (Tylenol) 325 mg 1X ONCE PO Last administered on 05/31/17 16: 48; Start 05/31/17 at 16:45; Stop 05/31/17 at 16:46; Status DC Vancomycin HCl (Vanco Per Pharmacy) 1 each PRN DAILY PRN MC SEE COMMENTS Last administered on 05/31/17 19:39; Start 05/31/17 at 17:30; Stop 06/01/17 at 11 :15; Status DC Sodium Chloride 1,000 ml @ 100 mls/hr 1X ONCE IV Last administered on 18:23; Start 05/31/17 at 17:30; Stop 06/01/17 at 03:29; Status DC Vancomycin HCl 2 gm/Dextrose 500 ml @ 250 mls/hr 1X ONCE IV Last administered on 05/31/17 18:23; Start 05/31/17 at 18:00; Stop 05/31/17 at 19 :59; Status DC Sodium Polystyrene Sulfonate (Kayexalate) 15 gm 1X ONCE PO Last administered on 05/31/17 22:44; Start 05/31/17 at 19:15; Stop 05/31/17 at 19:16; Status DC Piperacillin Sod/ Tazobactam Sod (Zosyn) 3.375 gm Q6HRS IVP Last administered on 06/02/17 12:57; Start 06/01/17 at 00:00 Vancomycin HCl 1.5 gm/Dextrose 500 ml @ 250 mls/hr Q12H IV Last administered on 06/01/17 06:36; Start 06/01/17 at 06:30; Stop 06/01/17 at 11:15; Status DC Vancomycin HCl 1 each 1X ONCE MC ; Start 06/02/17 at 06:00; Stop 06/02/17 at 06:00; Status DC Acetaminophen (Tylenol) 1,000 mg PRN Q6HRS PRN PO FEVER > 100.5'F Last administered on 05/31/17 22:44; Start 05/31/17 at 22:30 Linezolid (Zyvox) 600 mg BID PO Last administered on 06/02/17 08:52; Start 06/01/17 at 12:00 Allopurinol (Zyloprim) 300 mg DAILY PO Last administered on 06/02/17 08:51; Start 06/01/17 at 12:30 Aspirin (Ecotrin) 81 mg DAILY PO Last administered on 06/02/17 08:52; Start 06/01/17 at 12:30 Clonazepam (KlonoPIN) 0.5 mg DAILY PO Last administered on 06/02/17 08:53; Start 06/01/17 at 12:30 Cyanocobalamin (Vitamin B-12) 1,000 mcg DAILY PO Last administered on 08:52; Start 06/01/17 at 12:30 Cyclobenzaprine HCl (Flexeril) 10 mg PRN TID PRN PO PAIN; Start 06/01/17 at 11 :45 Finasteride (Proscar) 5 mg DAILY PO Last administered on 06/02/17 08:52; Start 06/01/17 at 12:30 Levothyroxine Sodium (Synthroid) 100 mcg DAILY07 PO Last administered on 06:21; Start 06/01/17 at 12:30 Montelukast Sodium (Singulair) 10 mg DAILY PO Last administered on 06/02/17 08:51; Start 06/01/17 at 12:30 Oxycodone/ Acetaminophen (Percocet 10/325) 1 tab PRN Q6HRS PRN PO PAIN Last administered on 06/02/17 06:20; Start 06/01/17 at 11:45; Stop 06/02/17 at 08 :37; Status DC Terazosin HCl (Hytrin) 5 mg QHS PO Last administered on 06/01/17 21:08; Start 06/01/17 at 21:00 Trazodone HCl (Desyrel) 100 mg QHS PO Last administered on 06/01/17 21:07; Start 06/01/17 at 21:00 Non-Formulary Medication 1 cap DAILYWBKFT PO ; Start 06/02/17 at 08:00; Status UNV Diclofenac Sodium (Voltaren) 75 mg DAILY PO Last administered on 06/02/17 08: 51; Start 06/01/17 at 12:30 Fish Oil (Fish Oil) 1,000 mg DAILY PO Last administered on 06/02/17 08:53; Start 06/01/17 at 12:30 Non-Formulary Medication 1,000 mg DAILY PO ; Start 06/02/17 at 09:00; Status UNV Non-Formulary Medication 1 each BID PO ; Start 06/01/17 at 21:00; Status UNV Multivitamins (Thera M Plus) 1 tab DAILY PO Last administered on 06/02/17 08: 58; Start 06/01/17 at 12:30 Metoprolol Tartrate (Lopressor) 25 mg BID PO Last administered on 06/02/17 08 :53; Start 06/01/17 at 12:30 Pantoprazole Sodium (Protonix) 40 mg DAILYAC PO Last administered on 08:51; Start 06/01/17 at 12:30 Atorvastatin Calcium (Lipitor) 10 mg QHS PO Last administered on 06/01/17 21: 08; Start 06/01/17 at 21:00 Ziprasidone (Geodon) 80 mg BID PO Last administered on 06/02/17 08:53; Start 06/01/17 at 12:30 Oxycodone/ Acetaminophen (Percocet 10/325) 2 tab TID PRN PRN PO PAIN; Start at 08:45 Active Scripts Active Reported Vitamin B-12 (Cyanocobalamin (Vitamin B-12)) 1,000 Mcg Tablet 1 Tab PO DAILY Multivitamins (Multivitamin) 1 Each Tablet 1 Tab PO DAILY Garlic 1,000 Mg Capsule 1,000 Mg PO DAILY Fish Oil 1,200 Mg Fish Oil (Fish Oil/Dha/Epa) 1 Each Capsule 1 Each PO DAILY Prilosec Otc (Omeprazole Magnesium) 20 Mg Tablet. 1 Tab PO DAILY Glucosamine Chondroitin Cap (Gluc Hcl/Csa/Ishmael Hy/Hyalur Ac) 1 Each Capsule 1 Each PO BID Aspir 81 (Aspirin) 81 Mg Tablet. 1 Tab PO DAILY Montelukast Sodium Tablet (Montelukast Sodium) 10 Mg Tablet 1 Tab PO DAILY Cyclobenzaprine Hcl 10 Mg Tablet 1 Tab PO PRN TID PRN Clonazepam 0.5 Mg Tablet 1 Tab PO DAILY Trazodone Hcl 100 Mg Tablet 1 Tab PO QHS Oxycodone-Acetaminophen 10-325 (Oxycodone Hcl/Acetaminophen) 1 Each Tablet 1 Each PO PRN Q6HRS PRN Pravastatin Sodium 40 Mg Tablet 1 Tab PO DAILY Bystolic (Nebivolol) 5 Mg Tablet 5 Mg PO DAILY Finasteride 5 Mg Tablet 1 Tab PO DAILY Allopurinol 300 Mg Tablet 1 Tab PO DAILY Strattera (Atomoxetine Hcl) 40 Mg Capsule 1 Cap PO DAILYWBKFT Ziprasidone Hcl 80 Mg Capsule 80 Mg PO BID Diclofenac Sodium 75 Mg Tablet. 1 Tab PO DAILY Levothyroxine Sodium 100 Mcg Tablet 1 Tab PO DAILY Terazosin Hcl 5 Mg Capsule 1 Cap PO QHS Allergies Allergies: Coded Allergies: escitalopram (Verified Allergy, Severe, "made me suicidal", 05/31/17) ROS General: No: Chills, Night Sweats, Fatigue, Malaise, Appetite, Other Eyes: No Blurry vision, No Decreased vision, No Double vision, No Dry eyes, No Excessive tearing, No Eye Pain, No Itchy Eyes, No Loss of vision, No Photophobia , No Scotomata, No Uses contacts, No Uses glasses, No Other HEENT: YES: Other Hematological and Lymphatic: No: Bleeding Problems, Blood Clots, Blood Transfusions, Brusing, Night Sweats, Pallor, Swollen Lymph Nodes, Other Respiratory: No: Cough, Hemoptysis, Orthopnea, Pleuritic Pain, Shortness of breath, SOB with excertion, Sputum Changes, Stridor, Tachypnea, Wheezing, Other Genitourinary: No Dysuria, No Frequency, No Incontinence, No Hematuria, No Retention, No Discharge, No Urgency, No Pain, No Flank Pain, No Other, No , No , No , No , No , No , No Musculoskeletal: Yes Joint Pain Physical Exam General: Alert, Oriented X3 HEENT: Atraumatic, EOMI Lungs: Other (respirations are symmetric and unlabored) Heart: Regular rate Abdomen: Normal bowel sounds, Soft Extremities: Normal pulses Neuro: Normal speech, Strength at 5/5 X4 ext Psych/Mental Status: Mental status NL, Mood NL MUSCULOSKELETAL: Other (he has healed portals around his anterior knees. Mild effusion of both knees. Both knees stable to varus valgus. Large amount of crepitus in the patellofemoral joints. Both knees stable to varus and valgus) Vitals VITALS Vital Signs Date Time Temp Pulse Resp B/P (MAP) Pulse Ox O2 Delivery O2 Flow Rate FiO2 06/02/17 11:00 97.9 77 20 111/75 (87) 95 Room Air 97.9 Labs Labs Laboratory Tests Test 05/31/17 16:39 06/01/17 09:40 06/02/17 05:41 White Blood Count 8.9 x10^3/uL (4.0-11.0) 7.3 x10^3/uL (4.0-11.0) Red Blood Count 3.86 x10^6/uL (4.30-5.70) 3.35 x10^6/uL (4.30-5.70) Hemoglobin 10.3 g/dL (13.0-17.5) 8.9 g/dL (13.0-17.5) Hematocrit 33.1 % (39.0-53.0) 28.2 % (39.0-53.0) Mean Corpuscular Volume 86 fL (79-100) 84 fL (79-100) Mean Corpuscular Hemoglobin 27 pg (25-35) 27 pg (25-35) Mean Corpuscular Hemoglobin Concent 31 g/dL (31-37) 32 g/dL (31-37) Red Cell Distribution Width 16.6 % (11.5-14.5) 16.5 % (11.5-14.5) Platelet Count 249 x10^3/uL (140-400) 220 x10^3/uL (140-400) Neutrophils (%) (Auto) 85 % (31-73) 77 % (31-73) Lymphocytes (%) (Auto) 6 % (24-48) 10 % (24-48) Monocytes (%) (Auto) 7 % (0-9) 9 % (0-9) Eosinophils (%) (Auto) 2 % (0-3) 4 % (0-3) Basophils (%) (Auto) 0 % (0-3) 0 % (0-3) Neutrophils # (Auto) 7.5 x10^3uL (1.8-7.7) 5.7 x10^3uL (1.8-7.7) Lymphocytes # (Auto) 0.5 x10^3/uL (1.0-4.8) 0.7 x10^3/uL (1.0-4.8) Monocytes # (Auto) 0.6 x10^3/uL (0.0-1.1) 0.7 x10^3/uL (0.0-1.1) Eosinophils # (Auto) 0.2 x10^3/uL (0.0-0.7) 0.3 x10^3/uL (0.0-0.7) Basophils # (Auto) 0.0 x10^3/uL (0.0-0.2) 0.0 x10^3/uL (0.0-0.2) Prothrombin Time 13.5 SEC (11.7-14.0) Prothromb Time International Ratio 1.1 (0.8-1.1) Activated Partial Thromboplast Time 31 SEC (24-38) Sodium Level 140 mmol/L (136-145) 142 mmol/L (136-145) Potassium Level 5.6 mmol/L (3.5-5.1) 4.5 mmol/L (3.5-5.1) Chloride Level 104 mmol/L (98-107) 108 mmol/L (98-107) Carbon Dioxide Level 25 mmol/L (21-32) 25 mmol/L (21-32) Anion Gap 11 (6-14) 9 (6-14) Blood Urea Nitrogen 32 mg/dL (8-26) 20 mg/dL (8-26) Creatinine 1.6 mg/dL (0.7-1.3) 1.2 mg/dL (0.7-1.3) Estimated GFR (Cockcroft-Gault) 44.0 61.3 BUN/Creatinine Ratio 20 (6-20) 17 (6-20) Glucose Level 103 mg/dL (70-99) 106 mg/dL (70-99) Lactic Acid Level 1.7 mmol/L (0.4-2.0) Calcium Level 8.8 mg/dL (8.5-10.1) 8.9 mg/dL (8.5-10.1) Total Bilirubin 0.2 mg/dL (0.2-1.0) 0.3 mg/dL (0.2-1.0) Aspartate Amino Transf (AST/SGOT) 35 U/L (15-37) 31 U/L (15-37) Alanine Aminotransferase (ALT/SGPT) 40 U/L (16-63) 44 U/L (16-63) Alkaline Phosphatase 82 U/L (46-116) 69 U/L (46-116) Total Protein 7.7 g/dL (6.4-8.2) 6.7 g/dL (6.4-8.2) Albumin 3.5 g/dL (3.4-5.0) 2.8 g/dL (3.4-5.0) Albumin/Globulin Ratio 0.8 (1.0-1.7) 0.7 (1.0-1.7) Iron Level 7 ug/dL (65-175) Total Iron Binding Capacity 289 ug/dL (250-450) Iron Saturation 2 % (15-34) Vitamin B12 Level 528 pg/mL (247-911) Serum Folate 19.81 ng/ml (3.2-20.0) Laboratory Tests Test 06/02/17 05:41 White Blood Count 7.3 x10^3/uL (4.0-11.0) Red Blood Count 3.35 x10^6/uL (4.30-5.70) Hemoglobin 8.9 g/dL (13.0-17.5) Hematocrit 28.2 % (39.0-53.0) Mean Corpuscular Volume 84 fL (79-100) Mean Corpuscular Hemoglobin 27 pg (25-35) Mean Corpuscular Hemoglobin Concent 32 g/dL (31-37) Red Cell Distribution Width 16.5 % (11.5-14.5) Platelet Count 220 x10^3/uL (140-400) Neutrophils (%) (Auto) 77 % (31-73) Lymphocytes (%) (Auto) 10 % (24-48) Monocytes (%) (Auto) 9 % (0-9) Eosinophils (%) (Auto) 4 % (0-3) Basophils (%) (Auto) 0 % (0-3) Neutrophils # (Auto) 5.7 x10^3uL (1.8-7.7) Lymphocytes # (Auto) 0.7 x10^3/uL (1.0-4.8) Monocytes # (Auto) 0.7 x10^3/uL (0.0-1.1) Eosinophils # (Auto) 0.3 x10^3/uL (0.0-0.7) Basophils # (Auto) 0.0 x10^3/uL (0.0-0.2) Sodium Level 142 mmol/L (136-145) Potassium Level 4.5 mmol/L (3.5-5.1) Chloride Level 108 mmol/L (98-107) Carbon Dioxide Level 25 mmol/L (21-32) Anion Gap 9 (6-14) Blood Urea Nitrogen 20 mg/dL (8-26) Creatinine 1.2 mg/dL (0.7-1.3) Estimated GFR (Cockcroft-Gault) 61.3 BUN/Creatinine Ratio 17 (6-20) Glucose Level 106 mg/dL (70-99) Calcium Level 8.9 mg/dL (8.5-10.1) Total Bilirubin 0.3 mg/dL (0.2-1.0) Aspartate Amino Transf (AST/SGOT) 31 U/L (15-37) Alanine Aminotransferase (ALT/SGPT) 44 U/L (16-63) Alkaline Phosphatase 69 U/L (46-116) Total Protein 6.7 g/dL (6.4-8.2) Albumin 2.8 g/dL (3.4-5.0) Albumin/Globulin Ratio 0.7 (1.0-1.7) Images Images X-rays were interpreted by myself, weightbearing x-rays demonstrate advanced degenerative changes most notable at the medial compartments. These were compared to x-rays from over a year ago which demonstrated the same. Assessment/Plan Assessment/Plan I did discuss with Saad the concern with his weight and performing any joint replacement surgery in terms of the amount of complications. We did talk about continued conservative therapy and he would like to try the Visco supplementation again. My office will contact him when we get this approved. He did follow up with me next week. RAUL GARCIA II, MD Jun 02, 2017 14:09
[2017-06-02 15:00] VITALS: BP 152/87
[2017-06-02 19:00] VITALS: BP 148/84
[2017-06-02] MEDS: ATORVASTATIN CALCIUM 10 MG TABLET. PO SCH (20:54)
[2017-06-02] MEDS: TERAZOSIN 5 MG CAPSULE. PO SCH (20:54)
[2017-06-02] MEDS: LACTOBACILLUS RHAMNOSUS GG 1 CAPSULE. PO SCH (20:54)
[2017-06-02] MEDS: traZODone 100 MG TABLET. PO SCH (22:23)
[2017-06-02 23:00] VITALS: BP 123/79
[2017-06-03] MEDS: PIPERACILLIN/TAZO IV Push 3.375 GM VIAL. IVP SCH ×3 (00:05→12:39)
[2017-06-03 03:00] VITALS: BP 135/86
[2017-06-03] MEDS: LEVOTHYROXINE 100 MCG TABLET PO SCH (06:03)
[2017-06-03] MEDS: oxyCODONE/APAP 10/325 1 TAB TABLET PO PRN ×2 (06:03→14:16)
[2017-06-03 07:00] VITALS: BP 152/89
--- NOTE | 2017-06-03 08:33 | PDOC ---
GENERAL General: vss and afebrile. ear less swollen and tender and cellulitis face much less red. ongoing iv antibiotics per ID. ortho notes appreciated. chest clear and heart regular. Problems: VITAL SIGNS Vital Signs: Vital Signs Date Time Temp Pulse Resp B/P (MAP) Pulse Ox O2 Delivery O2 Flow Rate FiO2 06/03/17 07:00 97.5 71 20 152/89 (110) 95 Room Air 97.5 I & O I & O Intake and Output 06/03/17 06:59 Intake Total 2090 ml Balance 2090 ml Intake Oral 2090 ml # Voids 6 ALLERGIES Allergies: Allergies Coded Allergies Type Severity Reaction Last Updated Verified escitalopram Allergy Severe "made me suicidal" 05/31/17 Yes MEDS Medications: Current Medications Medications (Trade) Dose Ordered Sig/Genesis Start Time Stop Time Status Last Admin Dose Admin Acetaminophen (Tylenol) 1,000 mg PRN Q6HRS PRN 05/31/17 22:30 05/31/17 22:44 1,000 MG Allopurinol (Zyloprim) 300 mg DAILY 06/01/17 12:30 06/02/17 08:51 300 MG Aspirin (Ecotrin) 81 mg DAILY 06/01/17 12:30 06/02/17 08:52 81 MG Atorvastatin Calcium (Lipitor) 10 mg QHS 06/01/17 21:00 06/02/17 20:54 10 MG Clonazepam (KlonoPIN) 0.5 mg DAILY 06/01/17 12:30 06/02/17 08:53 0.5 MG Cyanocobalamin (Vitamin B-12) 1,000 mcg DAILY 06/01/17 12:30 06/02/17 08:52 1,000 MCG Cyclobenzaprine HCl (Flexeril) 10 mg PRN TID PRN 06/01/17 11:45 Diclofenac Sodium (Voltaren) 75 mg DAILY 06/01/17 12:30 06/02/17 08:51 75 MG Finasteride (Proscar) 5 mg DAILY 06/01/17 12:30 06/02/17 08:52 5 MG Fish Oil (Fish Oil) 1,000 mg DAILY 06/01/17 12:30 06/02/17 08:53 1,000 MG Lactobacillus Rhamnosus (Culturelle) 1 cap BID 06/02/17 21:00 06/02/17 20:54 1 CAP Levothyroxine Sodium (Synthroid) 100 mcg DAILY07 06/01/17 12:30 06/03/17 06:03 100 MCG Linezolid (Zyvox) 600 mg BID 06/01/17 12:00 06/02/17 20:54 600 MG Metoprolol Tartrate (Lopressor) 25 mg BID 06/01/17 12:30 06/02/17 20:55 25 MG Montelukast Sodium (Singulair) 10 mg DAILY 06/01/17 12:30 06/02/17 08:51 10 MG Multivitamins (Thera M Plus) 1 tab DAILY 06/01/17 12:30 06/02/17 08:58 1 TAB Non-Formulary Medication 1 each BID 06/01/17 21:00 UNV Oxycodone/ Acetaminophen (Percocet 10/325) 2 tab TID PRN PRN 06/02/17 08:45 06/03/17 06:03 2 TAB Pantoprazole Sodium (Protonix) 40 mg DAILYAC 06/01/17 12:30 06/02/17 08:51 40 MG Piperacillin Sod/ Tazobactam Sod (Zosyn Per Pharmacy) 1 each PRN DAILY PRN 05/31/17 16:00 Piperacillin Sod/ Tazobactam Sod (Zosyn) 3.375 gm Q6HRS 06/01/17 00:00 06/03/17 06:04 3.375 GM Sodium Polystyrene Sulfonate (Kayexalate) 15 gm 1X ONCE 05/31/17 19:15 05/31/17 19:16 DC 05/31/17 22:44 15 GM Sodium Chloride 1,000 ml @ 100 mls/hr 1X ONCE 05/31/17 17:30 06/01/17 03:29 DC 05/31/17 18:23 100 MLS/HR Terazosin HCl (Hytrin) 5 mg QHS 06/01/17 21:00 06/02/17 20:54 5 MG Trazodone HCl (Desyrel) 100 mg QHS 06/01/17 21:00 06/02/17 22:23 100 MG Vancomycin HCl 1 each 1X ONCE 06/02/17 06:00 06/02/17 06:00 DC Vancomycin HCl (Vanco Per Pharmacy) 1 each PRN DAILY PRN 05/31/17 17:30 06/01/17 11:15 DC 05/31/17 19:39 1 EACH Vancomycin HCl 1.5 gm/Dextrose 500 ml @ 250 mls/hr Q12H 06/01/17 06:30 06/01/17 11:15 DC 06/01/17 06:36 250 MLS/HR Vancomycin HCl 2 gm/Dextrose 500 ml @ 250 mls/hr 1X ONCE 05/31/17 18:00 05/31/17 19:59 DC 05/31/17 18:23 250 MLS/HR Ziprasidone (Geodon) 80 mg BID 06/01/17 12:30 06/02/17 20:55 80 MG ANITA GUNDERSON MD Jun 03, 2017 08:33
[2017-06-03] MEDS: ZIPRASIDONE 20 MG CAPSULE PO SCH (09:05)
[2017-06-03] MEDS: FINASTERIDE 5 MG TABLET. PO SCH (09:06)
[2017-06-03] MEDS: DICLOFENAC SODIUM 25 MG TABLET.DR PO SCH (09:06)
[2017-06-03] MEDS: METOPROLOL TART IMMED RELEASE 25 MG TABLET. PO SCH (09:06)
[2017-06-03] MEDS: clonazePAM 0.5 MG TABLET PO SCH (09:06)
[2017-06-03] MEDS: LINEZOLID 600 MG TABLET PO SCH (09:07)
[2017-06-03] MEDS: MONTELUKAST SODIUM 10 MG TABLET. PO SCH (09:07)
[2017-06-03] MEDS: CYANOCOBALAMIN (VITAMIN B-12) 1,000 MCG TABLET. PO SCH (09:07)
[2017-06-03] MEDS: ALLOPURINOL 300 MG TABLET. PO SCH (09:07)
[2017-06-03] MEDS: PANTOPRAZOLE 40 MG TABLET.DR. PO SCH (09:07)
[2017-06-03] MEDS: MULTIVITAMIN with MINERAL TABLET. PO SCH (09:07)
[2017-06-03] MEDS: OMEGA-3 FATTY ACIDS/FISH OIL 1,000 MG CAPSULE. PO SCH (09:07)
[2017-06-03] MEDS: ASPIRIN ENTERIC COATED 81 MG TABLET.DR. PO SCH (09:07)
[2017-06-03] MEDS: LACTOBACILLUS RHAMNOSUS GG 1 CAPSULE. PO SCH (09:07)
--- NOTE | 2017-06-03 10:41 | PDOC ---
Infectious Disease Note Subjective Subjective Less pain and improving. No ear drainage or change in hearing. vision/sinus ok Beely button better ROS ROS GEN: Denies fevers, chills, sweats HEENT: Denies blurred vision, sore throat CV: Denies chest pain RESP: Denies shortness of air, cough GI: Denies n/v/d NEURO: Denies confusion, dizziness MSK: Denies weakness, joint pain/swelling Vital Sign Vital Signs Vital Signs Date Time Temp Pulse Resp B/P (MAP) Pulse Ox O2 Delivery O2 Flow Rate FiO2 06/03/17 09:06 71 152/89 06/03/17 07:03 20 Room Air 06/03/17 07:00 97.5 95 97.5 Physical Exam PHYSICAL EXAM GENERAL: NAD, Alert, in chair HEENT: PERRL, OC/OP - clear NECK: Supple, no JVD, no LN LUNGS: Clear HEART: S1S2, no gallop, no murmur ABD: Soft, NT, no organomegaly, no rebound. EXT: No edema, no cyanosis PERIOPERATIVE TECH: Alert, oriented x 3, no focal neurologic deficit SKIN: No rash. Less inflammation of ear and surrounding area. peeling IV: ok Objective Assessment Fever better Right ear cellulitis - improving Umbilical superficial ulcer Water exposure TACHO - better Plan Plan of Care Discont Zyvox Zosyn Ok to d/c home on Doxy/Levoflox for 7 days Can f/u one week ID office [phone] BLANCA GUZMAN MD Jun 03, 2017 10:41
[2017-06-03 10:51] VITALS: BP 149/80
--- NOTE | 2017-06-28 22:43 | DS ---
DATE OF DISCHARGE: 06/03/2017 PRIMARY DIAGNOSIS: Cellulitis of the right ear and face. ADDITIONAL DIAGNOSES: Severe osteoarthritis of the knees, fever, chronic umbilical ulcer, normochromic normocytic anemia with decreased iron level, bipolar depression and hypertension. CHIEF COMPLAINT AND HISTORY OF PRESENT ILLNESS: This 61-year-old white male was admitted through the Emergency Room with right ear and facial cellulitis and fever. He did have a normal white count with left shift at the time of admission. SUMMARY OF STAY: The patient was admitted. ID was consulted as well as Ortho, as he had an appointment to see them regarding his knees on the day following admission. He was on IV antibiotics throughout the stay and transitioned to oral Levaquin and doxycycline at the time of discharge. Initially during the hospitalization, he ran fevers as high as 102.7. He did become afebrile. His cellulitis began to improve as well along with the swelling. His white count was normal to start with the left shift improved. Ortho saw him, had concerns about his weight and doing any sort of aggressive treatment, such as knee replacement and recommended viscosupplementation and they will set it up at the time of discharge. It was felt that he could be dismissed with outpatient followup to include ongoing evaluation of his anemia. DISPOSITION: The patient is discharged to home. DIET: Regular diet. ACTIVITY: As tolerated. FOLLOWUP: Office in 1 week. DISCHARGE MEDICATIONS: Listed on the med rec and have been addressed. ANITA GUNDERSON MD DR: IVONNE/jaye JOB#: [id number] / [id number]
== END 2017-06-03 15:00 | disposition home or self-care (01) | DRG 871 ==
LOC: ER 14:52 → ED HOLD 17:20 → 5 SOUTH 19:27
PROVIDERS: ADMIT Family Medicine; ATTEND Family Medicine
DX: A41.9 Sepsis, unspecified organism (principal); N17.1 Acute kidney failure with acute cortical necrosis; L03.211 Cellulitis of face; H60.11 Cellulitis of right external ear; E03.9 Hypothyroidism, unspecified; E78.00 Pure hypercholesterolemia, unspecified; E78.5 Hyperlipidemia, unspecified; F31.9 Bipolar disorder, unspecified; G89.29 Other chronic pain; I10 Essential (primary) hypertension; K21.9 Gastro-esophageal reflux disease without esophagitis; M10.9 Gout, unspecified; L98.491 Non-pressure chronic ulcer of skin of other sites limited to breakdown of skin; M48.061 Spinal stenosis, lumbar region without neurogenic claudication; M19.90 Unspecified osteoarthritis, unspecified site; Z98.49 Cataract extraction status, unspecified eye; Z85.46 Personal history of malignant neoplasm of prostate; Z88.1 Allergy status to other antibiotic agents
CPT/HCPCS: 36415; 73560; 73565; 80053; 82607; 82746; 83540; 83550; 83605; 85025; 85610; 85730; 87040; 96361; 96365; 96375; J2543; J3370; J7030; 99285-25

== ENCOUNTER → 2017-11-03 | Day surgery (SDC) | payer MEDICARE, OTHER ==
[~2017-11-03] MED LIST: LIDOCAINE 1% PF 2 ML VIAL. ID; MIDAZOLAM HCL/PF 2 MG/2 ML VIAL. IV; PROPOFOL 20 ML IV; fentaNYL PF VIAL 100 MCG/2 ML VIAL IV
[2017-11-03] MEDS: IV RINGERS,LACTATED 1000ML 1,000 ML IV (12:33)
== END ==
LOC: SURG 11:44
DX: K57.30 Diverticulosis of large intestine without perforation or abscess without bleeding (principal); D50.9 Iron deficiency anemia, unspecified; K64.0 First degree hemorrhoids; K25.9 Gastric ulcer, unspecified as acute or chronic, without hemorrhage or perforation; K29.30 Chronic superficial gastritis without bleeding; K90.9 Intestinal malabsorption, unspecified; K21.0 Gastro-esophageal reflux disease with esophagitis; K31.89 Other diseases of stomach and duodenum; I10 Essential (primary) hypertension; M19.90 Unspecified osteoarthritis, unspecified site; E03.9 Hypothyroidism, unspecified; Z72.89 Other problems related to lifestyle; Z79.82 Long term (current) use of aspirin; Z83.3 Family history of diabetes mellitus; Z82.49 Family history of ischemic heart disease and other diseases of the circulatory system
CPT/HCPCS: 43239; 88305; 88342; J2704

== ENCOUNTER → 2017-12-11 | Outpatient (CLI) | payer MEDICARE, OTHER | END | disposition home or self-care (01) | LOC: KCIC MRI 08:08 | DX: M54.16 Radiculopathy, lumbar region (principal); G89.29 Other chronic pain; M48.061 Spinal stenosis, lumbar region without neurogenic claudication | CPT/HCPCS: 72146; 72148 ==

== ENCOUNTER → 2018-03-29 | Day surgery (SDC) | payer MEDICARE, OTHER ==
[~2018-03-29] MED LIST changes: +ALLO300T PO; +ASPI-482 PO; +ATOM40CA PO; +BYSTOLIC5 MG PO; +CLON0.5T11 PO; +CYAN10005 PO; +CYCL10TA2 PO; +DICL75TA PO; +FINA5TAB4 PO; +FISH1CAP PO; +GARL10002 PO; +GLUC1CAP18 PO; +IV RINGERS,LACTATED 1000ML 1,000 ML IV SCH; +LEVO100T PO; +LEVO100T5 PO; -LIDOCAINE 1% PF 2 ML VIAL. ID; +LIDOCAINE 1% PF 2 ML VIAL. ID PRN; +LIDOCAINE 2% PF Vial for OR 5 ML VIAL. ONE; -MIDAZOLAM HCL/PF 2 MG/2 ML VIAL. IV; +MIDAZOLAM HCL/PF 2 MG/2 ML VIAL. IV PRN; +MONT10TA9 PO; +MULT1TAB52 PO; +OMEP20TA63 PO; +OXYC-411 PO; +PRAV40TA2 PO; -PROPOFOL 20 ML IV; +PROPOFOL 20 ML IV ONE; +TERA5CAP3 PO; +TRAM50TA PO; +TRAZ-86 PO; +ZIPR80CA3 PO; -fentaNYL PF VIAL 100 MCG/2 ML VIAL IV; +fentaNYL PF VIAL 100 MCG/2 ML VIAL IV PRN
--- NOTE | 2018-03-29 12:43 | PDOC1 ---
History and Physical Date of Admission Date of Admission DATE: 03/29/18 TIME: 12:35 Source Source: Chart review, Patient History of Present Illness History of Present Illness 62 y/o male presented with NADEGE. Colonoscopy negative, but on EGD, apparent duodenal villous atrophy, confirmed on biopsy. Has been on GFD since October. Presents now for repeat duodenal biopsies to confirm/refute histologic response and diagnosis of celiac disease. Past Medical History Cardiovascular: HTN Psych: Bipolar Musculoskeletal: Osteoarthritis Endocrine: Hypothyroidism Past Surgical History Past Surgical History: Total knee replacement (left), Other (eye surgery/ vasectomy) Family History Family History: Coronary Artery Disease, Diabetes, Hypertension Social History Smoke: No ALCOHOL: occassional Drugs: None Current Medications Current Medications Current Medications Midazolam HCl (Versed) 2 mg PRN 1X PRN IV PRIOR TO PROCEDURE; Start 03/29/18 at 12:00; Stop 03/30/18 at 11:59 Fentanyl Citrate (Fentanyl 2ml Vial) 25 mcg PRN Q5MIN PRN IV X 2 DOSES FOR PAIN ; Start 03/29/18 at 12:00; Stop 03/30/18 at 11:59 Fentanyl Citrate (Fentanyl 2ml Vial) 50 mcg PRN Q5MIN PRN IV X 2 DOSES FOR PAIN ; Start 03/29/18 at 12:00; Stop 03/30/18 at 11:59 Ringer's Solution 1,000 ml @ 125 mls/hr Q8H IV ; Start 03/29/18 at 11:52; Stop 03/29/18 at 23:51 Lidocaine HCl (Xylocaine-Mpf 1% 2ml Vial) 2 ml 1X PRN PRN ID IV START; Start at 12:00; Stop 03/30/18 at 11:59 Active Scripts Active Reported Tramadol Hcl 50 Mg Tablet 50 Mg PO Q6HRS PRN Vitamin B-12 (Cyanocobalamin (Vitamin B-12)) 1,000 Mcg Tablet 1 Tab PO DAILY Multivitamins (Multivitamin) 1 Each Tablet 1 Tab PO DAILY Garlic 1,000 Mg Capsule 1,000 Mg PO DAILY Fish Oil 1,200 Mg Fish Oil (Fish Oil/Dha/Epa) 1 Each Capsule 1 Each PO DAILY Prilosec Otc (Omeprazole Magnesium) 20 Mg Tablet.dr 1 Tab PO DAILY Glucosamine Chondroitin Cap (Gluc Hcl/Csa/Ishmael Hy/Hyalur Ac) 1 Each Capsule 1 Each PO BID Aspir 81 (Aspirin) 81 Mg Tablet.dr 1 Tab PO DAILY Montelukast Sodium Tablet (Montelukast Sodium) 10 Mg Tablet 1 Tab PO DAILY Cyclobenzaprine Hcl 10 Mg Tablet 1 Tab PO PRN TID PRN Clonazepam 0.5 Mg Tablet 1 Tab PO DAILY Trazodone Hcl 100 Mg Tablet 1 Tab PO QHS Pravastatin Sodium 40 Mg Tablet 1 Tab PO DAILY Bystolic (Nebivolol) 5 Mg Tablet 5 Mg PO DAILY Finasteride 5 Mg Tablet 1 Tab PO DAILY Allopurinol 300 Mg Tablet 1 Tab PO DAILY Strattera (Atomoxetine Hcl) 40 Mg Capsule 1 Cap PO DAILYWBKFT Ziprasidone Hcl 80 Mg Capsule 80 Mg PO BID Diclofenac Sodium 75 Mg Tablet.dr 1 Tab PO DAILY Levothyroxine Sodium 100 Mcg Tablet 1 Tab PO DAILY Terazosin Hcl 5 Mg Capsule 1 Cap PO QHS Allergies Allergies: Coded Allergies: escitalopram (Verified Allergy, Severe, "made me suicidal", 03/29/18) ROS Review of System Otherwise non-contributory. Physical Exam General: Alert, Oriented X3, Cooperative, No acute distress Lungs: Clear to auscultation Heart: S1S2, RRR, no gallops, no murmurs Abdomen: Normal bowel sounds, Soft, No tenderness, No hepatosplenomegaly, No masses Rectal Exam: not examined Extremities: No cyanosis, No edema Skin: No significant lesion Neuro: Normal gait, Normal speech, Strength at 5/5 X4 ext, Normal tone, Sensation intact, Cranial nerves 3-12 NL Psych/Mental Status: Mental status NL, Mood NL Vitals Vitals See nursing records. VTE Prophylaxis Ordered VTE Prophylaxis Devices: No VTE Pharmacological Prophylaxi: No Assessment/Plan Assessment/Plan IMP: NADEGE/duodenal villous atrophy--Celiac? PLAN: EGD/biopsies of duodenum re: histologic response to gluten-free diet. ARASH REYNA MD Mar 29, 2018 12:43
--- NOTE | 2018-03-29 13:39 | PDOC4 ---
PROCEDURE Procedure EGD/biopsies Indication: NADEGE/villous atrophy/response to GFD? Meds: per anesthesia Findings: E--LA grade A at 40cm G--Normal D--Bulb normal. Still seems atrophic in second portion. Biopsies taken. Walter. well. IMP: Mild esophagitis Still atrophy? REC: Resume home meds and diet. Await biopsies. F/u with me in 2 weeks. ARASH REYNA MD Mar 29, 2018 13:39
[2018-03-29 14:05] VITALS: BP 152/81
--- NOTE | 2018-03-30 15:08 | PATHOLOGY ---
[facility] Accession Number: [id number] . 01 Material submitted: . DUODENAL BIOPSY . 01 Clinical history: . Hx celiac disease . 02 Diagnosis: Duodenal biopsy: - Malabsorption pattern with near complete villous atrophy. See comment. (JPM/at;03/30/18) QTA/03/30/2018 . 02 Comment: Sections of the duodenal biopsy show near complete villous atrophy, crypt hyperplasia, and chronic inflammation. The changes are nonspecific, but are consistent with partially treated celiac sprue. (JPM/at;03/30/18) . 02 Electronically signed: . Wai Isaac MD, Pathologist NPI- [id number] . 01 Gross description: . Received in formalin labeled "Telma, Bill, duodenal BX," are 3 segments of parrish soft tissue measuring 1.1 x 0.6 x 0.2 cm in aggregate dimensions and ranging from 0.4 to 0.5 cm in maximum dimension. The specimen is submitted entirely in cassette A1. (TSD; 03/29/2018) TOB/TOB . 02 Pathologist provided ICD-10: K31.9 . 02 CPT . 693226 Specimen Comment: A courtesy copy of this report has been sent to Specimen Comment: [phone]. Specimen Comment: Report sent to / DR GUNDERSON Specimen Comment: A duplicate report has been generated due to demographic updates. Performed at: 01 [facility] [address] [id number] MD Jayesh Dodge MD Phone: [phone] Performed at: 02 [facility] [address] [place], [place] [id number] MD Wai Isaac MD Phone: [phone]
== END | disposition home or self-care (01) ==
LOC: ENDOS 12:28
PROVIDERS: ATTEND Internal Medicine Gastroenterology
DX: K21.0 Gastro-esophageal reflux disease with esophagitis (principal); K31.89 Other diseases of stomach and duodenum; K90.89 Other intestinal malabsorption; K29.80 Duodenitis without bleeding; D50.9 Iron deficiency anemia, unspecified; I10 Essential (primary) hypertension; M19.90 Unspecified osteoarthritis, unspecified site; F31.9 Bipolar disorder, unspecified; E03.9 Hypothyroidism, unspecified; Z88.8 Allergy status to other drugs, medicaments and biological substances; Z98.52 Vasectomy status; Z96.652 Presence of left artificial knee joint; Z83.3 Family history of diabetes mellitus; Z82.49 Family history of ischemic heart disease and other diseases of the circulatory system; Z72.89 Other problems related to lifestyle; Z79.899 Other long term (current) drug therapy
CPT/HCPCS: 43239; 88305; J2001; J2704

== ENCOUNTER → 2018-11-25 | Outpatient (CLI) | payer MEDICARE, OTHER ==
[2018-03-29 14:05] VITALS: BP 152/81
[~2018-11-25] MED LIST changes: -IV RINGERS,LACTATED 1000ML 1,000 ML IV SCH; -LIDOCAINE 1% PF 2 ML VIAL. ID PRN; -LIDOCAINE 2% PF Vial for OR 5 ML VIAL. ONE; -MIDAZOLAM HCL/PF 2 MG/2 ML VIAL. IV PRN; -PROPOFOL 20 ML IV ONE; -fentaNYL PF VIAL 100 MCG/2 ML VIAL IV PRN
--- NOTE | 2018-11-25 10:46 | KCIC ---
MRI of the lumbar spine without contrast 11/25/2018 CLINICAL HISTORY: Low back pain. History of lumbar stenosis. TECHNIQUE: Unenhanced T1-weighted and T2-weighted sagittal and axial and inversion recovery sagittal images of the lumbar spine were obtained. FINDINGS: Comparison study is dated 12/11/2017. Mild S-shaped curvature of the thoracolumbar spine is seen. Degenerative signal changes and loss of height are seen involving all of the disks of the lumbar spine. Degenerative signal changes are seen within the marrow surrounding these discs. The conus medullaris is normal morphology, position, and signal characteristics. A 3.3 cm rounded high signal intensity lesion is seen involving the lower pole of the left kidney on the T2-weighted images. This likely represents a cyst. At the L1-2 disc space there is a moderate generalized disc bulge. Superimposed on the disc bulge is a central/left paracentral disc osteophyte complex. This measures 3 mm in AP diameter. Degenerative changes are seen involving the facet joints bilaterally. There is moderate ligamentum flavum hypertrophy bilaterally. There are small bilateral facet joint effusions. These findings when combined result in mild to moderate left greater than right central spinal canal stenosis. Mild left neural foraminal stenosis is seen. The right neural foramen is patent. At the L2-3 disc space there is a moderate generalized disc bulge. Degenerative changes are seen involving the facet joints bilaterally. There is moderate ligamentum flavum hypertrophy bilaterally. There is prominence of the posterior epidural fat. These findings when combined result in moderate to severe central spinal canal stenosis. Mild left neural foraminal stenosis is seen. The right neural foramen is patent. At the L3-4 disc space there is a moderate generalized disc bulge. This is eccentric to the left. Superimposed on the disc bulge is a central/left paracentral focal disc herniation which extrudes slightly inferiorly but predominantly superiorly and in a left paracentral location as an extruded disc fragment. The extruded disc fragment measures 2.4 x 0.9 x 0.6 cm in craniocaudal, transverse and AP dimensions. Degenerative changes are seen involving the facet joints bilaterally. There is a small left facet joint effusions. Moderate ligamentum flavum hypertrophy is seen bilaterally. There is prominence of posterior epidural fat. These findings when combined result in severe, left greater than right, central spinal canal stenosis. Mild bilateral neural foraminal stenosis is seen. At the L4-5 disc space there is a moderate generalized disc bulge. This is eccentric to the right. Superimposed on the disc bulge is a focal central disc osteophyte complex. This measures 3 mm in AP diameter. Degenerative changes are seen involving the facet joints bilaterally. There is moderate ligamentum flavum hypertrophy bilaterally. These findings when combined result in mild to moderate central spinal canal stenosis. Mild right neural foraminal stenosis is seen. The left neural foramen is patent. At the L5-S1 disc space there is a moderate generalized disc bulge. Superimposed on the disc bulge is a central/right paracentral disc osteophyte complex. This measures 4 mm in AP diameter. Degenerative changes are seen involving the facet joints bilaterally. There is moderate ligament flavum hypertrophy bilaterally. These findings when combined result in mild central spinal canal stenosis. Mild to moderate left neural foraminal stenosis is seen. The right neural foramen is patent. Since the previous examination there has been no significant interval change. IMPRESSION: The changes of degenerative disc disease are seen throughout the lumbar spine. These findings result in mild to moderate left greater than right central spinal canal stenosis at L1-2, moderate to severe central spinal canal stenosis at L2-3, severe left greater than right central spinal canal stenosis at L3-4, mild to moderate central spinal canal stenosis at L4-5 and mild central spinal canal stenosis at L5-S1. Mild left greater than right neural foraminal stenosis is seen at L1-2. Mild left neural foraminal stenosis is seen at L2-3. Mild bilateral neural foraminal stenosis is seen at L3-4. Mild right neural foraminal stenosis is seen at L4-5. Mild to moderate left neural foraminal stenosis is seen at L5-S1. Electronically signed by: Job Gan MD (11/25/2018 10:43 AM) [facility]
== END | disposition home or self-care (01) ==
LOC: EEVIPCON 09:04 → KCIC MRI 09:04
PROVIDERS: ATTEND Nurse Practitioner Acute Care
DX: M51.36 Other intervertebral disc degeneration, lumbar region (principal); M48.061 Spinal stenosis, lumbar region without neurogenic claudication; M25.48 Effusion, other site; M25.78 Osteophyte, vertebrae
CPT/HCPCS: 72148

== ENCOUNTER → 2019-01-07 | Outpatient (CLI) | payer MEDICARE, OTHER ==
[2018-03-29 14:05] VITALS: BP 152/81
[~2019-01-07] MED LIST changes: +IOHEXOL 240 MG/ML 50ML VIAL. PO ONE; +IOHEXOL 300 MG/ML 100ML VIAL. IV ONE; +MONT10TA49 PO; -MONT10TA9 PO
--- NOTE | 2019-01-07 13:52 | KCIC ---
Examination: CT ABD PELV W/ORAL IV CONTRAST History: Abdominal pain and weight loss Comparison/Correlation: None Findings: Axial images of the abdomen and pelvis were obtained following IV and oral contrast. Sagittal and coronal reformatted images were provided. Calcified granuloma is involving the lower lung doe. Liver is normal. Granulomas are noted throughout the spleen. Gallbladder fossa is unremarkable. Adrenal glands are normal. Right kidney is normal. Left renal lower pole cyst is present. There may be an adjacent cyst or this may possibly represent a cyst with a very thin septation. No enlarged abdominal or pelvic lymph nodes. No ascites or pelvic free fluid. Umbilical hernia contains a moderate quantity of omental fat. Hernia defect measures 2.8 cm longitudinal. No definite bowel obstruction or extraluminal gas. Slight distention of left upper quadrant small bowel gas is present. No conclusive finding for ileus or obstruction. Minimal diverticulosis is present. Urinary bladder is unremarkable. Appendix is normal. Auditory quantity of stool involves approximately colon. Severe degenerative disc space narrowing is present from L1 to L5 with vacuum disc phenomenon. Spinal canal stenoses at multiple levels noted. Impression: No mass lesion or lymphadenopathy identified. Minimal diverticulosis. Umbilical hernia containing omental fat. PQRS Compliance Statement: One or more of the following individualized dose reduction techniques were utilized for this examination: 1. Automated exposure control 2. Adjustment of the mA and/or kV according to patient size 3. Use of iterative reconstruction technique Electronically signed by: Quinten Velez MD (01/07/2019 1:49 PM) [id number]
== END | disposition home or self-care (01) ==
LOC: KCIC CT 08:57
PROVIDERS: ATTEND Internal Medicine Gastroenterology
DX: K42.9 Umbilical hernia without obstruction or gangrene (principal); K63.89 Other specified diseases of intestine; K57.90 Diverticulosis of intestine, part unspecified, without perforation or abscess without bleeding; J84.10 Pulmonary fibrosis, unspecified; N28.1 Cyst of kidney, acquired; M48.061 Spinal stenosis, lumbar region without neurogenic claudication; I10 Essential (primary) hypertension
CPT/HCPCS: 74177; Q9966; Q9967

== ENCOUNTER 2020-01-13 16:16 | Emergency (ER) | payer MEDICARE ==
[~2020-01-13] VITALS: Ht 182.9 cm; Wt 113.0 kg
[~2020-01-13 16:16] MED LIST changes: +CLON-77 PO; -CLON0.5T11 PO; +CYAN-25 PO; -CYAN10005 PO; -IOHEXOL 240 MG/ML 50ML VIAL. PO ONE; -IOHEXOL 300 MG/ML 100ML VIAL. IV ONE; +LEVO-101 PO; -LEVO100T PO; +MULT-445 PO; -MULT1TAB52 PO; +TRAZ-123 PO; -TRAZ-86 PO
[2020-01-13 16:45] VITALS: BP 128/64
[2020-01-13] MEDS ORDERED: NEOMY/BACITR/POLYMYXIN OINT PACKET. TP ONE (18:30)
[2020-01-13] MEDS ORDERED: LIDOCAINE 1% PF 2 ML VIAL. INJ ONE (18:30)
[2020-01-13] MEDS ORDERED: DIPH,PERTUSS(ACELL),TET VAC/PF 0.5 ML SYRINGE. VAX IM ONE (18:30)
--- NOTE | 2020-01-13 18:52 | RAD ---
EXAM: PA, oblique and lateral views of the left fingers. DATE: 01/13/2020 6:18 PM INDICATION: Reason: L middle finger laceration from profile grinder over PIP / Spl. Instructions: / History: COMPARISON: No Prior FINDINGS/ IMPRESSION: No acute fracture or dislocation. Numerous radiopaque densities are seen at the radial margin of the middle finger PIP joint, possibly retained foreign bodies or on the skin surface. Moderate associated soft tissue swelling. Electronically signed by: Candido Pacheco MD (01/13/2020 6:49 PM) [facility]
[2020-01-13] MEDS ORDERED: CEPH500C PO (20:16)
--- NOTE | 2020-01-13 20:16 | PHYS DOC ---
Past Medical History Past Medical History: Arthritis, Bipolar, GERD, High Cholesterol, Hypertension Additional Past Medical Histor: BPH, thyroid disease, gout, lumbar stenosis Past Surgical History: Other Additional Past Surgical Histo: bilat knee surgery, cataracts, R wrist surgery Smoking Status: Never Smoker Alcohol Use: Rarely Drug Use: None General Adult EDM: Chief Complaint: LACERATION/AVULSION HPI: HPI: Patient is a 64 year old male, accompanied by his , who presents to the emergency department with complaints of a laceration over the volar surface of his left middle finger. Patient states he was using a tankage grinder to cut a metal pi pe when he lost control the tankage grinder and cut his finger. He denies any decreased range of motion, numbness, tingling, or weakness of the affected digit. Patient is unsure when his last tetanus shot was. He currently rates his pain a 4 out of 10 on the pain scale he denies any alleviating or exacerbating factors, the pain does not radiate Review of Systems: Review of Systems: Constitutional: Denies fever or chills. [] Musculoskeletal: See HPI Integument: See HPI Neurologic: Denies focal weakness or sensory changes. [] Psychiatric: Denies depression or anxiety. [] Heart Score: Risk Factors: Risk Factors: DM, Current or recent (<one month) smoker, HTN, HLP, family history of CAD, obesity. Risk Scores: Score 0 - 3: 2.5% MACE over next 6 weeks - Discharge Home Score 4 - 6: 20.3% MACE over next 6 weeks - Admit for Clinical Observation Score 7 - 10: 72.7% MACE over next 6 weeks - Early Invasive Strategies Current Medications: Current Medications Medications (Trade) Dose Ordered Sig/Genesis Start Time Stop Time Status Last Admin Dose Admin Diphtheria/ Tetanus/Acell Pertussis (ADACEL TDap SYRINGE) 0.5 ml ONCE ONCE 01/13/20 18:30 01/13/20 18:31 DC 01/13/20 19:16 0.5 ML Lidocaine HCl (Xylocaine-Mpf 1% 2ml Vial) 6 ml 1X ONCE 01/13/20 18:30 01/13/20 18:31 DC 01/13/20 19:15 6 ML Neomycin/ Polymyxin/ Bacitracin (Triple Antibiotic Ointment) 1 pkt 1X ONCE 01/13/20 18:30 01/13/20 18:31 DC 6/26/20 19:15 1 PKT Allergies: Allergies: Allergies Coded Allergies Type Severity Reaction Last Updated Verified escitalopram Allergy Severe "made me suicidal" 03/29/18 Yes Physical Exam: PE: Constitutional: Well developed, well nourished, no acute distress, non-toxic appearance. [] HENT: Normocephalic, atraumatic, bilateral external ears normal, nose normal. [] Eyes: PERRLA, EOMI, conjunctiva normal, no discharge. [] Neck: Normal range of motion, no stridor. [] Cardiovascular:Heart rate regular rhythm Lungs & Thorax: Respirations even and unlabored, no retractions, no respiratory distress Skin: Warm, dry, no erythema, no rash, there is a 3 cm laceration to the volar surface of the left index finger over the PIP with small metal fragments present at the laceration edge.. [] Extremities: Left middle finger: Full extension and flexion, strength 5/5, No cyanosis, ROM intact, no edema. [] Neurologic: Alert and oriented X 3, no focal deficits noted. [] Psychologic: Affect normal, judgement normal, mood normal. [] Current Patient Data: Vital Signs: Vital Signs Date Time Temp Pulse Resp B/P (MAP) Pulse Ox O2 Delivery O2 Flow Rate FiO2 01/13/20 16:45 97.8 69 16 128/64 (85) 98 Room Air 97.8 EKG: EKG: [] Radiology/Procedures: Radiology/Procedures: Laceration Repair by me: Anesthesia: 1% lidocaine locally Location: Left third digit Tendon/Joint/Nerves: No injury Foreign body: None detected after copious irrigation and exploration with chlorhexidine scrub and NS Technique: 6 simple Interrupted Sutures with 4-0 Ethilon Complexity: No subcutaneous sutures/mucosal repair/edge excision Post Closure Length: 3 cm Patient's bleeding was easily controlled in the department and there is no indication of anemia. No evidence of compartment syndrome, neurologic injury, vascular injury, open joint, tendon laceration, or foreign body. Patient is appropriate for outpatient follow up. PROCEDURE: FINGER(S) LEFT EXAM: PA, oblique and lateral views of the left fingers. DATE: 01/13/2020 6:18 PM INDICATION: Reason: L middle finger laceration from tankage grinder over PIP / Spl. Instructions: / History: COMPARISON: No Prior FINDINGS/ IMPRESSION: No acute fracture or dislocation. Numerous radiopaque densities are seen at the radial margin of the middle finger PIP joint, possibly retained foreign bodies or on the skin surface. Moderate associated soft tissue swelling. 4 [] Course & Med Decision Making: Course & Med Decision Making Pertinent Labs and Imaging studies reviewed. (See chart for details) Patient is a 64-year-old male who presents to the emergency department with complaints of a laceration to his left middle finger. Tdap was updated as needed. X-ray revealed no acute fracture, there were foreign bodies present Laceration repair as documented above. I advised the patient that there may be retained foreign body that would work its way out, I irrigated the wound with over 210 mL of normal saline and thoroughly scrubbed it there were no visible foreign bodies to the naked eye after wound cleansing. Prescription written for Keflex as patient has a history of bilateral knee replacements. Patient was p laced in aluminum finger splint, he was instructed to wear the splint until sutures are removed in 14 days. He can follow-up with his primary care doctor or return to the ER for suture removal. Patient verbalized an understanding of home care, medications, follow-up, and return to ED instructions and was in agreement with the plan of care. [] Dragon Disclaimer: Dragon Disclaimer: This electronic medical record was generated, in whole or in part, using a voice recognition dictation system. Departure Departure Impression: Primary Impression: Laceration of left middle finger with foreign body w/o damage to nail Qualified Codes: S61.223A - Laceration with foreign body of left middle finger without damage to nail, initial encounter Additional Impression: Need for Tdap vaccination Disposition: 01 HOME, SELF-CARE Condition: STABLE Referrals: ANITA GUNDERSON MD (PCP) Patient Instructions: Laceration Care, Adult, [id number], VIS, Tetanus, Diphtheria (Td); Tetanus, Diphtheria, Pertussis (Tdap) - CDC Additional Instructions: Fill the prescription and use it as directed. Keep the area clean and dry. You may take Tylenol or ibuprofen as needed for pain. Keep the dressing that was placed today on for 24 hours then change the dressing twice a day and apply anti biotic ointment to the area. Wear the aluminum finger splint until sutures have been removed. Follow-up with your primary care doctor, or return to the emergency room in 10-14 days to have the sutures removed, sooner if you develop signs of infection including: redness, warmth, drainage, or a fever. Scripts Cephalexin (CEPHALEXIN) 500 Mg Capsule 1 CAP PO TID for 7 Days, #21 CAP 0 Refills Prov: MITZY BOND APRN 01/13/20 Justicifation of Admission Dx: Justifications for Admission: Justification of Admission Dx: N/A MITZY BOND APRN Jan 13, 2020 20:16
== END 2020-01-13 20:58 | disposition home or self-care (01) ==
LOC: ER 16:16
DX: S61.223A Laceration with foreign body of left middle finger without damage to nail, initial encounter (principal); R60.0 Localized edema; M19.90 Unspecified osteoarthritis, unspecified site; F31.9 Bipolar disorder, unspecified; K21.9 Gastro-esophageal reflux disease without esophagitis; E78.00 Pure hypercholesterolemia, unspecified; I10 Essential (primary) hypertension; N40.0 Benign prostatic hyperplasia without lower urinary tract symptoms; Z79.899 Other long term (current) drug therapy; Z98.890 Other specified postprocedural states; W26.8XXA Contact with other sharp object(s), not elsewhere classified, initial encounter; Y93.89 Activity, other specified; Y92.89 Other specified places as the place of occurrence of the external cause; Y99.8 Other external cause status
CPT/HCPCS: 12002; 73140; 90471; 90715; 99283; J3490